=== PATIENT | female | born 1950 | race African-American/Black ===

== ENCOUNTER 2018-06-28 20:14 | Inpatient (IN) | payer MEDICARE ==
[2018-06-28 21:03] LABS: Lactate 1.22 mmol/L (0.50-2.20)
[2018-06-28 21:07] LABS: #Lymphocytes 0.8 thou/uL (1.20-3.40); #Monocytes 0.6 thou/uL (0.11-0.59); #Neutrophils 7.1 thou/uL (1.40-6.50); %Basophils 0.5 % (0.0-1.0); %Eosinophils 0.1 % (0.0-10.0); %Lymphocytes 9.7 % (21.0-51.0); %Monocytes 7.2 % (0.0-10.0); %Neutrophils 82.4 % (42.0-75.0); Hemoglobin 10.8 g/dL (12.0-16.0); Mean Corpuscular HGB CONC 30.9 g/dL (32.0-36.0); Mean Corpuscular Hemoglobin 25.9 pg (27.0-31.0); Mean Corpuscular Volume 83.9 fL (78.0-98.0); Mean Platelet Volume 9.5 fL (7.4-10.4); Platelet Count 168 thou/uL (130-400); RBC Distribution Width 16.3 % (11.5-14.5); Red Blood Cell (RBC) Count 4.17 mill/uL (4.20-5.40); White Blood Cell (WBC) Count 8.6 thou/uL (4.8-10.8)
--- NOTE | 2018-06-28 21:08 | RAD ---
PORTABLE CHEST: 06/28/18 PROVIDED CLINICAL HISTORY: Altered mental status. FINDINGS: No comparisons. There is marked enlargement of the cardiac silhouette. Vascular stent material is see n. Left subclavian cardiac pacing device is noted with lead tips overlying expected locations of RA a nd RV. No definite focal consolidation, pleural fluid or pneumothorax apparent. IMPRESSION: Cardiomegaly without evidence for an acute cardiopulmonary process. POS: [facility]
[2018-06-28 21:31] LABS: ALT (SGPT) 8 U/L (8-55); AST (SGOT) 13 U/L (5-34); Albumin 3.2 g/dL (3.4-4.8); Alkaline Phosphatase 68 U/L (40-150); Anion Gap 14 mmol/L (10-20); BUN (Urea Nitrogen) 25 mg/dL (9.8-20.1); Bilirubin, Total 1.8 mg/dL (0.2-1.2); Calc. Creatinine Clearance 0 mL/min (70-130); Calcium 9.2 mg/dL (7.8-10.44); Carbon Dioxide 32 mmol/L (23-31); Chloride 93 mmol/L (98-107); Estimated GFR-MDRD 9; Globulin 4.6 g/dL (2.4-3.5); Glucose 125 mg/dL (80-115); Potassium 3.6 mmol/L (3.5-5.1); Protein, Total 7.8 g/dL (6.0-8.3); Sodium 135 mmol/L (136-145)
--- NOTE | 2018-06-28 21:39 | CT ---
CT BRAIN 06/28/18 PROVIDED CLINICAL HISTORY: Fall. FINDINGS: No comparisons. The ventricular system appears normal in size and morphology. There is no evidence fo r intracranial hemorrhage or mass effect. Encephalomalacia involves a portion of the right cerebellar hemisphere on the basis of prior insult. There is no evidence for intracranial hemorrhage or mass ef fect. The extracranial soft tissues and osseous structures demonstrate no acute abnormality. IMPRESSION: No evidence for intracranial hemorrhage or mass effect. POS: [facility]
[2018-06-28] MEDS ORDERED: Acetaminophen 325 MG TAB ONE (21:41)
[2018-06-28] MEDS ORDERED: Piperacillin/Tazobactam 4.5 GM VIAL ONE (21:50)
[2018-06-28 21:52] LABS: CKMB 0.8 ng/mL (0-6.6)
[2018-06-29 00:43] LABS: Troponin I 0.081 ng/mL (< 0.028)
[2018-06-29] MEDS ORDERED: Acetaminophen 325 MG TAB PO PRN (00:43)
[2018-06-29] MEDS ORDERED: Dextrose 50% Abboject 50 ML SYRINGE SLOW IVP PRN (00:53)
[2018-06-29] MEDS ORDERED: Dextrose 5% in Water 1,000 ML IV PRN (00:53)
[2018-06-29] MEDS ORDERED: Vancomycin HCl 1 GM in Premix Bag 1 BAG IVPB PRN (01:13)
[2018-06-29] MEDS ORDERED: Vancomycin HCl 750 MG in Sodium Chloride 0.9% 250 ML 250 ML IVPB PRN ×2 (01:13→10:44)
[2018-06-29] MEDS ORDERED: Vancomycin HCl 1.25 GM in Sodium Chloride 0.9% 250 ML 250 ML IVPB PRN (01:13)
[2018-06-29] MEDS ORDERED: Vancomycin HCl 500 MG in Sodium Chloride 0.9% 100 ML IVPB PRN (01:14)
[2018-06-29] MEDS ORDERED: HOLD VANCOMYCIN FOR LEVEL >20 FS PRN (01:14)
[2018-06-29] MEDS ORDERED: Lidocaine 1% PF 5 ML VIAL ONE (01:28)
[2018-06-29 02:10] LABS: Mean Corpuscular HGB CONC 31.3 g/dL (32.0-36.0); Mean Corpuscular Hemoglobin 26.3 pg (27.0-31.0); RBC Distribution Width 16.2 % (11.5-14.5); White Blood Cell (WBC) Count 7.4 thou/uL (4.8-10.8)
[2018-06-29 02:11] LABS: #Basophils 0.1 thou/uL (0.0-0.2); #Lymphocytes 0.9 thou/uL (1.20-3.40); #Monocytes 0.5 thou/uL (0.11-0.59); #Neutrophils 5.9 thou/uL (1.40-6.50); %Basophils 0.7 % (0.0-1.0); %Eosinophils 0.1 % (0.0-10.0); %Lymphocytes 11.5 % (21.0-51.0); %Monocytes 7.2 % (0.0-10.0); %Neutrophils 80.5 % (42.0-75.0); Mean Platelet Volume 9.8 fL (7.4-10.4); Platelet Count 154 thou/uL (130-400)
[2018-06-29] MEDS: Sodium Chloride 0.9% 1,000 ML IV SCH ×2 (02:19→06:12)
[2018-06-29 02:21] LABS: Anion Gap 16 mmol/L (10-20); BUN (Urea Nitrogen) 24 mg/dL (9.8-20.1); Calc. Creatinine Clearance 0 mL/min (70-130); Calcium 8.5 mg/dL (7.8-10.44); Carbon Dioxide 24 mmol/L (23-31); Chloride 96 mmol/L (98-107); Estimated GFR-MDRD 9; Glucose 137 mg/dL (80-115); Potassium 3.4 mmol/L (3.5-5.1); Sodium 133 mmol/L (136-145)
[2018-06-29 02:25] LABS: INR-International Normal Ratio 1.9; PTT 41.1 SEC (22.9-36.1); Prothrombin Time 21.4 SEC (12.0-14.7); Troponin I 0.069 ng/mL (< 0.028)
[2018-06-29] MEDS ORDERED: Sodium Chloride 0.9% 500 ML IVPB SCH ×2 (04:15→06:00)
[2018-06-29 05:18] VITALS: BMI 28.5
[2018-06-29] MEDS: Famotidine 20 MG TAB PO SCH (08:03)
[2018-06-29] MEDS: Piperacillin/Tazobactam 2.25 GM in Sodium Chloride 0.9% 100 ML IVPB SCH ×2 (08:04→20:06)
--- NOTE | 2018-06-29 08:30 | RAD ---
PORTABLE UPRIGHT FRONTAL CHEST RADIOGRAPH: 06/29/2018 HISTORY: Central line placement. COMPARISON: 06/28/2018 FINDINGS: Vascular stent material overlies the right lung apex, in the right axillary region. Right-sided vasc ular catheter present, distal tip overlying the region of the cavoatrial junction. Stent material ov erlies the right hilum, stable. Stable dual-lead AICD inserted via a left subclavian approach. Stab le prominence of the cardiac silhouette with no lobar consolidation or alveolar edema. IMPRESSION: Right-sided vascular catheter, as above. POS: [facility]
--- NOTE | 2018-06-29 08:33 | RAD ---
SUPINE PORTABLE KUB: 06/29/2018 HISTORY: Distention. COMPARISON: None. FINDINGS: There is a paucity of bowel gas in the pelvis, which may be secondary to a distended urinary bladder. Supine imaging limits assessment for free intraperitoneal air and small bowel obstruction. The bow el gas is centralized, which may signify ascites. IMPRESSION: Findings which may signify ascites. Limited assessment for bowel obstruction is grossly unremarkable . POS: [facility]
[2018-06-29] MEDS ORDERED: Vancomycin Sliding Scale 1 EACH FS SCH (09:00)
[2018-06-29] MEDS: HumaLOG 300 UNITS/3 ML VIAL SC PRN ×2 (11:45→17:06)
--- NOTE | 2018-06-29 14:22 | CON ---
DATE OF CONSULTATION: NEPHROLOGY CONSULTATION REASON FOR CONSULTATION: End-stage renal disease, on maintenance hemodialysis. HISTORY OF PRESENT ILLNESS: This is a very pleasant 68-year-old female, who presented to the hospital with altered mental status. The patient denies any nausea, vomiting, or chest pain. The patient has diabetes mellitus, and is on dialysis, schedule is unavailable. PAST MEDICAL HISTORY: Significant for diabetes mellitus, hypertension, anemia, secondary hyperparathyroidism and hypothyroidism. SOCIAL HISTORY: Noncontributory. FAMILY HISTORY: Negative for ESRD. ALLERGIES: REVIEWED. MEDICATIONS: Home medication list reviewed. REVIEW OF SYSTEMS: A 15-point review of systems was performed and was negative except for positives noted above. NECK: No swelling or lumps. NOSE: No epistaxis or discharge. EYES: No diplopia or pain. MUSCULOSKELETAL: No joint pain. NEUROPSYCHIATRIC SYSTEMS: No suicidal ideation. No ideation. SKIN: Denies any rash or ulcer. CONSTITUTIONAL: No fever or chills. OBJECTIVE: GENERAL: The patient is awake, alert, in no acute distress. VITAL SIGNS: Afebrile, pulse 90, breathing 16, and blood pressure 91/50. GENERAL APPEARANCE AND MENTAL STATUS: Fair. HEAD/NECK: Normocephalic. Atraumatic. EYES: EOMI. No deformity. EARS: Clear. No ulcers. NOSE: Intact. No lesions. MOUTH: Clear. No discharge. THROAT: Clear. No exudate. LUNGS: Clear. No crackles. CARDIAC: S1, S2. No rub. ABDOMEN: Benign. Bowel sounds positive. GENITALIA/RECTUM: Ortiz absent. BACK/EXTREMITIES: Edema 0+. NEUROLOGICAL: Alert and motor intact. LABORATORY DATA: Labs show hemoglobin of 10 and potassium 3.4. ASSESSMENT AND PLAN: 1. Stage 3 chronic kidney disease, no urgent indication for dialysis. 2. Hypotension, stable. 3. Anemia, stable. 4. Medications based on glomerular filtration rate are appropriate. 5. We will plan for dialysis tomorrow. Job ID: [id number]
--- NOTE | 2018-06-29 14:23 | CON ---
DATE OF CONSULTATION: 06/29/2018 SERVICE: Pulmonary Medicine. REASON FOR CONSULTATION: ICU patient. HISTORY OF PRESENT ILLNESS: The patient is a 68-year-old female with past medical history significant for end-stage renal disease. She presented to the hospital because of altered mentation/confusion. She was also having a fever. She does not know any of the elements that brought her to the hospital. Overnight, she was given some broad-spectrum antibiotics, liter of fluid. She never needed any pressors, though a central line was placed. Her mentation improved dramatically, her blood pressures firmed up, and she did not have any more fevers overnight. She currently denies any nausea, vomiting, or diarrhea. She is not coughing or bringing up any sputum. She denies hot, red, swollen joints, or rashes. She is tolerating dialysis just fine and she goes through fistula. She does not have any artificial devices in her. PAST MEDICAL HISTORY: 1. End-stage renal disease. 2. Type 2 diabetes mellitus. 3. Hypertension. 4. Hypothyroidism. 5. Dyslipidemia. 6. Coronary artery disease. 7. Peripheral vascular disease. PAST SURGICAL HISTORY: 1. AICD placement in the left subclavian. 2. Fistula creation in the right upper extremity. SOCIAL HISTORY: Negative for alcohol, tobacco, or illicit drug use. She has no exposure to chemicals, dust, asbestos, or tuberculosis. FAMILY HISTORY: Noncontributory. ALLERGIES: CODEINE. MEDICATIONS: List of her inpatient and outpatient medications was reviewed. At this point, no specific updates were made. REVIEW OF SYSTEMS: General, head, ears, eyes, nose, throat, cardiovascular, respiratory, GI, , musculoskeletal, neurologic, and skin are negative except as mentioned in the HPI. PHYSICAL EXAMINATION: VITAL SIGNS: Afebrile, pulse 96, blood pressure 119/70, respirations 17, and saturation 92% on 3 L nasal cannula. GENERAL: The patient is awake and alert, in no apparent distress. LUNGS: Dependent crackles are minimal. There is absolutely no prolonged expiratory phase. I do not appreciate rhonchi or wheezing. HEART: Normal rate. Regular. No significant murmurs are identified. ABDOMEN: Soft. Minimally distended. It is nontender to palpation. Bowel sounds are present. She has tympany with percussion. No rebound or guarding is noted. MUSCULOSKELETAL: No cyanosis or clubbing. There is no appreciable edema of the bilateral lower extremities or hips. : No Ortiz. NEUROLOGIC: Grossly nonfocal. Her strength is symmetric in the bilateral upper and lower extremities. Sensation was not tested. Cranial nerves are intact. Rapidly alternating movements in upper and lower extremities are normal. LABORATORY DATA: WBC 7.4, hemoglobin 10.0, platelets 154. Neutrophil count is 81%. INR 1.9. Troponin is downtrending to 0.069. Calcium 8.5. Lactate 1.2. Potassium 3.4. Creatinine 5.46. Otherwise, basic metabolic profile is unremarkable. Liver function studies are unremarkable except for a bilirubin of 1.8. AST and ALT as well as alkaline phosphatase are all normal. TSH falls within the normal limits. Hemoglobin A1c 9.3. Influenza A and B are negative, blood cultures x2 are unremarkable. IMAGING DATA: CT of the brain demonstrates no acute intracranial abnormality. Chest x-ray demonstrates multiple stents throughout the peripheral arterial structures on the right. There is a left subclavian central venous catheter in good position. Dual lead AICD is in place. Low lung volumes accentuate interstitial marking on the right. The right hemidiaphragm is significantly elevated. Cardiomegaly and left atrial enlargement are suggested. Abdominal x-ray demonstrates nonspecific bowel gas pattern. ASSESSMENT: 1. Metabolic encephalopathy, resolved. 2. Severe sepsis. 3. End-stage renal disease. 4. Peripheral vascular disease. 5. Possible ascites. DISCUSSION AND PLAN: I will do an ultrasound of the abdomen. If there is significant fluid collection there, diagnostic paracentesis would be indicated. At this point, she is stable for transition out of the ICU to the medical unit. Pulmonary/Critical Care will continue to follow along for the time being. Agree with empiric antibiotics, which will be de-escalated in 24 to 48 hours if we do not identify anything on our culture results. Job ID: [id number]
[2018-06-29] MEDS: Midodrine HCl 5 MG TAB PO SCH ×2 (14:42→20:01)
--- NOTE | 2018-06-29 15:06 | HP ---
CHIEF COMPLAINT: Found down and altered mental status. HISTORY OF PRESENT ILLNESS: This patient is a 68-year-old female, who has a history of end-stage renal disease, on dialysis. The patient was apparently doing fine in her usual state of health in her wheelchair. The patient's daughter reports that she left for about 30 minutes, and when she returned, she found her mother on the ground. She believes she simply was trying to sit in her wheelchair and missed the seat and was on the ground. However, she was acting differently and so she subsequently brought her to the emergency department. The patient's daughter reports that her mother is typically fairly sharp and oriented, but was not so when she found her. The patient is not able to give significant amount a history and does not remember the events. She says she is feeling fine. Denies any pain or any other symptoms at this time. She denies any urinary symptoms. According to the patient 's daughter, the patient does not make urine. REVIEW OF SYSTEMS: Essentially unobtainable due to the patient's mental status. PAST MEDICAL HISTORY: Notable for diabetes and hypertension and end-stage renal disease, on dialysis. 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 She also has a defibrillator in place, the patient cannot say why, the patient's daughter does not know why, and she does not know the name of her welding machine setter. PAST SURGICAL HISTORY: No known surgery per the patient's daughter. The patient 's daughter does report that her mother gets her stomach "drained about once a year ," and cannot offer more details than that. FAMILY HISTORY: Notable for hypertension throughout multiple family members. SOCIAL HISTORY: The patient is a nonsmoker, nondrinker, and nondrug user. She is a full code per the patient and her daughter, and her daughter would be her surrogate decision maker at this time. ALLERGIES: CODEINE. MEDICATIONS: 1. Amiodarone 200 mg p.o. daily. 2. Atorvastatin 10 mg at bedtime. 3. Carvedilol 3.125 mg b.i.d. 4. Dextromethorphan p.r.n. 5. Dialyvite 800-Ultra D 0.8-2000 units daily. 6. Fluticasone 50 mcg nasal spray daily. 7. Hydroxyzine 25 mg p.r.n. itching. 8. Lantus 12 units subcu q.a.m. 9. Humalog. 10. Levothyroxine 88 mcg daily. 11. Midodrine. 12. Sensipar 30 mg p.o. daily. 13. Sevelamer 800 mg two p.o. t.i.d. with meals. 14. Warfarin 2.5 mg p.o. daily. PHYSICAL EXAMINATION: VITAL SIGNS: Initial vital signs notable for temperature of 101.3, pulse 83, respirations 18, BP 120/75, and 94% on room air. GENERAL APPEARANCE: Age-appropriate female. She is awake and alert. She is conversant, but she appears to be slightly confused. She is oriented to person, place, and year presently, but she is unable to give much history about what happened today or her medical history. HEENT: She has no evidence of trauma to her head or face. Pupils were equal and reactive. She has no OP lesions. NECK: Supple and symmetric without lymphadenopathy, JVD, or carotid bruits. HEART: Regular rate and rhythm without murmurs, gallops, or rubs. LUNGS: Clear bilaterally. ABDOMEN: Appears to be somewhat distended. She does have a superior umbilical hernia which is distended, but does reduce fairly easily. It is nontender. Bowel sounds are present. EXTREMITIES: No significant edema. She has a dialysis port on the left. She has a defibrillator subcutaneously on the left. IMAGING STUDIES: EKG shows normal sinus rhythm without significant ischemic changes. Chest x-ray shows right-sided vascular implant and a left-sided defibrillator. ER COURSE: The patient was noted to be febrile in the emergency department. Her blood pressure dropped into the 80s systolic. She was subsequently treated empirically with vancomycin and Zosyn for possible sepsis. She did receive 1500 mL of IV fluids; however, given the fact that she does not make urine and is a dialysis patient, fluids were given more judiciously than typical in case of potential sepsis. IMPRESSION AND PLAN: 1. Apparent fall. The patient does not appear to have suffered any significant injury. She did not have a witnessed fall. It is really not clear what happened. She was simply found on the floor beside her wheelchair. Continue to monitor for any signs of injury. 2. Sepsis. The patient is a dialysis patient. She does not have a high white blood cell count, but she is somewhat hypotensive, and she appears to have metabolic encephalopathy, and she is febrile. We will continue with broad-spectrum antibiotics. At present, there is no specific sign of infection to specifically treat, so we will follow up on blood cultures. 3. Altered mental status, appears to be metabolic encephalopathy likely related to infection. We will need to continue to monitor closely. It does not appear that she is uremic. 4. End-stage renal disease, on dialysis. We will consult Nephrology. It is not clear who the patient's marine fireman is at this time. 5. Diabetes mellitus. We will give some sliding scale coverage for now. 6. Cardiac. The patient has a defibrillator. She is on amiodarone and she is on warfarin. She does not know why she is on any of those medications, likely due to her encephalopathy. We will need to try to track down some better information regarding her cardiac status, although that appears to be generally well compensated at the moment. 7. Hypertension. Continue with her usual home medications. 8. Some evidence of abdominal distention, we will obtain a KUB. Job ID: [id number] MTDD
[2018-06-30 04:56] LABS: #Eosinphils 0.1 thou/uL (0.0-0.7); #Monocytes 0.5 thou/uL (0.11-0.59); #Neutrophils 3.2 thou/uL (1.40-6.50); %Basophils 0.9 % (0.0-1.0); %Eosinophils 1.4 % (0.0-10.0); %Lymphocytes 21.2 % (21.0-51.0); %Neutrophils 65.5 % (42.0-75.0); Hemoglobin 10.1 g/dL (12.0-16.0); Mean Corpuscular HGB CONC 31.3 g/dL (32.0-36.0); Mean Corpuscular Hemoglobin 26.7 pg (27.0-31.0); Mean Corpuscular Volume 85.2 fL (78.0-98.0); Mean Platelet Volume 9.3 fL (7.4-10.4); Platelet Count 162 thou/uL (130-400); RBC Distribution Width 16.6 % (11.5-14.5); Red Blood Cell (RBC) Count 3.77 mill/uL (4.20-5.40); White Blood Cell (WBC) Count 4.9 thou/uL (4.8-10.8)
[2018-06-30 05:10] LABS: Anion Gap 16 mmol/L (10-20); BUN (Urea Nitrogen) 30 mg/dL (9.8-20.1); Calc. Creatinine Clearance 10 mL/min (70-130); Carbon Dioxide 26 mmol/L (23-31); Chloride 99 mmol/L (98-107); Estimated GFR-MDRD 8; Glucose 122 mg/dL (80-115); Potassium 3.7 mmol/L (3.5-5.1); Sodium 137 mmol/L (136-145)
--- NOTE | 2018-06-30 05:39 | PDOC.EVN ---
Event Note - Event Note Event Note: pt seen and examined, she is more awake and tells me that for the past 2-3 days she has not been eating nor drinking much. She tried to reach for something and fell off the wheelchair. She is more oriented and he bp is low normal. will continue abx for now.
--- NOTE | 2018-06-30 07:55 | ULT ---
ULTRASOUND ABDOMEN: Date: 06/28/18 HISTORY: Elevated bilirubin, ascites. FINDINGS: The liver demonstrates homogeneous echotexture without focal mass or intrahepatic ductal dilatation. There is a moderate amount of free fluid in the abdomen consistent with ascites. The spleen is normal , measuring 11.4 cm in length. The gallbladder is full of shadowing calculi, without gallbladder wall thickening or pericholecystic fluid. The common duct measures 5.0 mm in diameter. The visualized por tions of the pancreas, aorta, and IVC are unremarkable. There is a 1.5 cm cyst in the left kidney. No hydronephrosis is seen on either side. The kidneys are bilaterally atrophic, measuring 6.4 cm in franca gth on the right and 7.1 cm on the left. IMPRESSION: 1. Moderate ascites. 2. Cholelithiasis. 3. Left renal cyst. 4. Atrophic kidneys. POS: [facility]
[2018-06-30] MEDS: Famotidine 20 MG TAB PO SCH (09:12)
[2018-06-30] MEDS: Midodrine HCl 5 MG TAB PO SCH ×3 (09:24→20:08)
[2018-06-30] MEDS ORDERED: Vancomycin HCl 1 GM in Premix Bag 1 BAG IVPB SCH (12:00)
[2018-06-30 13:55] LABS: Vancomycin, Trough 7.6 ug/mL
[2018-06-30] MEDS: Piperacillin/Tazobactam 2.25 GM in Sodium Chloride 0.9% 100 ML IVPB SCH ×2 (15:05→20:13)
--- NOTE | 2018-06-30 17:40 | PDOC.PN ---
- Subjective Encounter Start Date: 06/30/18 Encounter Start Time: 10:30 Subjective: pt up in dialysis no complains - Objective Resuscitation Status - Order Detail: 06/29/18 00:43 Resuscitation Status Routine Resuscitation Status: FULL: Full Resuscitation Discussed with: Patient and Daughter Vital Signs & Weight: Vital Signs (12 hours) Temp Pulse Resp BP Pulse Ox 06/30/18 16:40 97.5 F L 76 16 105/70 94 L 06/30/18 08:00 94 L 06/30/18 07:50 97.4 F L 71 16 99/66 94 L Weight Weight 176 lb 12.972 oz Most Recent Monitor Data Heart Rate from ECG 70 NIBP 112/70 NIBP BP-Mean 84 Respiration from ECG 19 SpO2 97 I&O: 06/29/18 06/30/18 07/01/18 06:59 06:59 06:59 Intake Total 1110 1333 180 Output Total 0 Balance 1110 1333 180 Result Diagrams: 06/30/18 04:45 06/30/18 04:45 Additional Labs: Accuchecks 06/30/18 06/30/18 06/29/18 16:42 04:31 20:06 POC Glucose 91 120 H 187 H 06/29/18 17:03 POC Glucose 172 H Phys Exam - Physical Examination Respiratory: no wheezing, no rales, no rhonchi, wheezing present, clear to auscultation bilateral Cardiovascular: RRR, no significant murmur, no rub, gallop, irregular Gastrointestinal: soft, non-tender, no distention, positive bowel sounds Musculoskeletal: no edema, pulses present, edema present Dx/Plan (1) Sepsis Code(s): A41.9 - SEPSIS, UNSPECIFIED ORGANISM Status: Acute (2) Sepsis associated hypotension Code(s): A41.9 - SEPSIS, UNSPECIFIED ORGANISM; I95.9 - HYPOTENSION, UNSPECIFIED Status: Acute (3) ESRD (end stage renal disease) Code(s): N18.6 - END STAGE RENAL DISEASE Status: Acute - Plan no source for her hypotension, not sure if low bp due to autonomic -: pt on midodrine, ruq ultrasound indicated some ascites -: will get diagnostic parcentesis -: continue abx for now * . Review of Systems - Review of Systems Respiratory: negative: Cough, Dry, Shortness of Breath, Hemoptysis, SOB with Excertion, Pleuritic Pain, Sputum, Wheezing Cardiovascular: negative: chest pain, palpitations, orthopnea, paroxysmal nocturnal dyspnea, edema, light headedness, other Gastrointestinal: negative: Nausea, Vomiting, Abdominal Pain, Diarrhea, Constipation, Melena, Hematochezia, Other - Medications/Allergies Allergies/Adverse Reactions: Allergies Allergy/AdvReac Type Severity Reaction Status Date / Time codeine Allergy Verified 06/29/18 00:58 Medications: Current Medications Acetaminophen (Tylenol) 650 mg PO Q4H PRN PRN Reason: Headache/Fever/Mild Pain (1-3) Dextrose/Water (Dextrose 50%) 25 gm SLOW IVP PRN PRN PRN Reason: Hypoglycemia Famotidine (Pepcid) 20 mg PO DAILY [facility] Last Admin: 06/30/18 09:12 Dose: Not Given Glucagon (Glucagon) 1 mg IM PRN PRN PRN Reason: Hypoglycemia Piperacillin Sod/Tazobactam (Sod 2.25 gm/ Sodium Chloride) 100 mls @ 200 mls/ hr IVPB Q12HR [facility] Last Admin: 06/30/18 15:05 Dose: Not Given Dextrose/Water (D5w) 1,000 mls @ 0 mls/hr IV .Q0M PRN PRN Reason: Hypoglycemia Vancomycin HCl 1.25 gm/ Sodium (Chloride) 250 mls @ 166.667 mls/hr IVPB WILLCALL PRN PRN Reason: IF VANC LEVEL <= 5.0 Vancomycin HCl 1 gm/ Device 200 mls @ 200 mls/hr IVPB WILLCALL PRN PRN Reason: IF VANC LEVEL >5 AND <=10 Vancomycin HCl 750 mg/ Sodium (Chloride) 250 mls @ 250 mls/hr IVPB WILLCALL PRN PRN Reason: IF VANC LEVEL >10 AND <= 15 Vancomycin HCl 500 mg/ Sodium (Chloride) 100 mls @ 100 mls/hr IVPB WILLCALL PRN PRN Reason: IF VANC LEVEL >15 AND <=20 Vancomycin HCl 750 mg/ Sodium (Chloride) 250 mls @ 250 mls/hr IVPB WILLCALL PRN PRN Reason: IF VANC LEVEL >10 AND <= 15 Insulin Human Lispro (Humalog) 0 units SC .MILD SLIDING SCALE PRN PRN Reason: Mild Correctional Scale Last Admin: 12/19/18 17:06 Dose: 2 unit Midodrine (Proamatine) 5 mg PO TID [facility] Last Admin: 06/30/18 16:29 Dose: 5 mg Miscellaneous Medication (Vancomycin Sliding Scale) 0 each FS .WITH DIALYSIS [facility] Miscellaneous Medication (Pharmacy To Dose) 0 each IVPB PRN PRN PRN Reason: VANC Pharmacy to Dose Hold Vancomycin For (Level >20) 0 each FS .AT DIALYSIS PRN PRN Reason: HOLD VANCOMYCIN IF LEVEL >20 Sodium Chloride (Flush - Normal Saline) 10 ml IVF Q12HR [facility] Last Admin: 06/30/18 09:26 Dose: 10 ml Sodium Chloride (Flush - Normal Saline) 10 ml IVF PRN PRN PRN Reason: Saline Flush
--- NOTE | 2018-06-30 19:17 | PRG ---
DATE OF SERVICE: 06/30/2018 SUBJECTIVE: A 68-year-old female, being seen for end-stage renal disease. The patient denies any nausea, vomiting, or chest pain. OBJECTIVE: CONSTITUTIONAL: The patient is awake and alert. VITAL SIGNS: Afebrile, pulse 76, breathing 16, blood pressure 105/70. GENERAL APPEARANCE AND MENTAL STATUS: Fair. HEAD/NECK: Normocephalic, atraumatic. EYES: EOMI. No deformity. EARS: Clear. No ulcers. NOSE: Intact. No lesions. MOUTH: Clear. No discharge. THROAT: Clear. No exudate. LUNGS: Clear. No crackles. CARDIAC: S1, S2. No rub. ABDOMEN: Benign. Bowel sounds positive. GENITALIA/RECTUM: Ortiz absent. BACK/EXTREMITIES: Edema 0+. NEUROLOGICAL: Alert and motor intact. LABORATORY DATA: Labs show hemoglobin 10.1. ASSESSMENT AND PLAN: 1. Stage 3 chronic kidney disease, stable. 2. Hypertension, stable. 3. Anemia, stable. 4. Medications based on glomerular filtration rate are appropriate. Job ID: [id number]
[2018-07-01 06:08] LABS: INR-International Normal Ratio 1.5; Prothrombin Time 18.6 SEC (12.0-14.7)
[2018-07-01 06:09] LABS: PTT 40.8 SEC (22.9-36.1)
[2018-07-01] MEDS: Midodrine HCl 5 MG TAB PO SCH ×3 (08:14→20:52)
[2018-07-01] MEDS: Famotidine 20 MG TAB PO SCH (08:14)
[2018-07-01] MEDS: Piperacillin/Tazobactam 2.25 GM in Sodium Chloride 0.9% 100 ML IVPB SCH ×2 (08:15→20:55)
[2018-07-01 10:05] LABS: Vancomycin, Random 22.9 ug/mL (See Comment)
[2018-07-01 15:11] LABS: BF Color Yellow; BF RBC Count - Manual 210 /cumm; BF WBC/Nonhematics Ct. - Manua 69 /cumm; Body Fluid Source Ascites Body Fluid; Clarity Hazy (Clear); Tube # EDTA
[2018-07-01] MEDS ORDERED: Albumin 25% 25 GM/100 ML BOT IVPB SCH (15:31)
--- NOTE | 2018-07-01 15:48 | ULT ---
ULTRASOUND GUIDED PARACENTESIS: HISTORY: Sepsis of unknown source. Ascites. COMPARISON: None. FINDINGS: Successful ultrasound-guided paracentesis. A total of 1500 mL of yellow-colored ascites was aspirate d. The patient tolerated the procedure well. No immediate post procedure complications. TECHNIQUE: Consent obtained to perform an ultrasound-guided paracentesis. The patient's left lower quadrant was deemed appropriate. The skin was prepped and draped in a sterile fashion, and 1% Lidocaine, buffere d with sodium bicarbonate was used for local anesthesia. Under ultrasound guidance, a 5 [place] Yueh catheter was advanced into the peritoneal space, and 1500 mL of yellow-colored ascites was aspirated. The patient tolerated the procedure well. No immediate or post procedure complications. IMPRESSION: Successful ultrasound-guided paracentesis. POS: [facility]
[2018-07-01 15:57] LABS: BF Segmented Neutrophils 1 %; Cell Count Non Hematic 77 %; Lymphocytes 22 %
[2018-07-01 17:44] LABS: Fluid, Protein 3.3 g/dL (Not Available)
--- NOTE | 2018-07-01 17:58 | PRG ---
DATE OF SERVICE: 07/01/2018 SUBJECTIVE: A 68-year-old lady being seen for end-stage renal disease. The patient denies any nausea, vomiting, or chest pain. OBJECTIVE: GENERAL: The patient is awake, alert, in no acute distress. VITAL SIGNS: Afebrile. Pulse 78, breathing 16, and blood pressure 101/66. GENERAL APPEARANCE AND MENTAL STATUS: Fair. HEAD/NECK: Normocephalic. Atraumatic. EYES: EOMI. No deformity. EARS: Clear. No ulcers. NOSE: Intact. No lesions. MOUTH: Clear. No discharge. THROAT: Clear. No exudate. LUNGS: Clear. No crackles. CARDIAC: S1, S2. No rub. ABDOMEN: Benign. Bowel sounds positive. GENITALIA/RECTUM: Ortiz absent. BACK/EXTREMITIES: Edema 0+. NEUROLOGICAL: Alert and motor intact. LABORATORY DATA: Labs show hemoglobin . ASSESSMENT AND PLAN: 1. Stage chronic kidney disease, plan dialysis. 2. Hypertension, stable. 3. Anemia, stable. 4. Medications based on glomerular filtration rate are appropriate. Job ID: [id number]
--- NOTE | 2018-07-01 19:55 | PDOC.PN ---
- Subjective Encounter Start Date: 07/01/18 Encounter Start Time: 09:00 Subjective: pt up in bed no complains - Objective Resuscitation Status - Order Detail: 06/29/18 00:43 Resuscitation Status Routine Resuscitation Status: FULL: Full Resuscitation Discussed with: Patient and Daughter Vital Signs & Weight: Vital Signs (12 hours) Temp Pulse Resp BP Pulse Ox 07/01/18 16:06 97.4 F L 78 16 90/62 94 L 07/01/18 14:40 97.3 F L 76 16 101/66 95 07/01/18 08:00 92 L Weight Weight 176 lb 12.972 oz Most Recent Monitor Data Heart Rate from ECG 70 NIBP 112/70 NIBP BP-Mean 84 Respiration from ECG 19 SpO2 97 I&O: 06/30/18 07/01/18 07/02/18 06:59 06:59 06:59 Intake Total 1333 600 480 Output Total 0 Balance 1333 600 480 Result Diagrams: 06/30/18 04:45 06/30/18 04:45 Additional Labs: Accuchecks 07/01/18 07/01/18 06/30/18 16:10 04:45 19:50 POC Glucose 121 H 146 H 161 H Phys Exam - Physical Examination Neck: no nodes, no JVD, supple, full ROM Respiratory: no wheezing, no rales, no rhonchi, wheezing present, clear to auscultation bilateral Cardiovascular: RRR, no significant murmur, no rub, gallop, irregular Gastrointestinal: soft, non-tender, no distention, positive bowel sounds Dx/Plan (1) Sepsis Code(s): A41.9 - SEPSIS, UNSPECIFIED ORGANISM Status: Acute (2) Sepsis associated hypotension Code(s): A41.9 - SEPSIS, UNSPECIFIED ORGANISM; I95.9 - HYPOTENSION, UNSPECIFIED Status: Acute (3) ESRD (end stage renal disease) Code(s): N18.6 - END STAGE RENAL DISEASE Status: Acute - Plan pt going for paracentesis, pt at baseline per family -: will discontinue vanco and keep on zosyn for now -: nurse to obtain home meds. -: if paracentesis negative will discontinue abx vs prophylactic -: no source of infection for now. continue midodrine * . Review of Systems - Review of Systems Respiratory: negative: Cough, Dry, Shortness of Breath, Hemoptysis, SOB with Excertion, Pleuritic Pain, Sputum, Wheezing Cardiovascular: negative: chest pain, palpitations, orthopnea, paroxysmal nocturnal dyspnea, edema, light headedness, other Gastrointestinal: negative: Nausea, Vomiting, Abdominal Pain, Diarrhea, Constipation, Melena, Hematochezia, Other - Medications/Allergies Allergies/Adverse Reactions: Allergies Allergy/AdvReac Type Severity Reaction Status Date / Time codeine Allergy Verified 06/29/18 00:58 Medications: Current Medications Acetaminophen (Tylenol) 650 mg PO Q4H PRN PRN Reason: Headache/Fever/Mild Pain (1-3) Albumin Human (Albumin 25%) 25 gm IVPB NOW [facility] Stop: 07/01/18 20:00 Last Admin: 07/01/18 16:21 Dose: 25 gm Amiodarone HCl (Cordarone) 200 mg PO DAILY [facility] Atorvastatin Calcium (Lipitor) 10 mg PO DAILY [facility] Cinacalcet (Sensipar) 30 mg PO DAILY [facility] Dextrose/Water (Dextrose 50%) 25 gm SLOW IVP PRN PRN PRN Reason: Hypoglycemia Famotidine (Pepcid) 20 mg PO DAILY [facility] Last Admin: 07/01/18 08:14 Dose: Not Given Glucagon (Glucagon) 1 mg IM PRN PRN PRN Reason: Hypoglycemia Piperacillin Sod/Tazobactam (Sod 2.25 gm/ Sodium Chloride) 100 mls @ 200 mls/ hr IVPB Q12HR [facility] Last Admin: 07/01/18 08:15 Dose: Not Given Dextrose/Water (D5w) 1,000 mls @ 0 mls/hr IV .Q0M PRN PRN Reason: Hypoglycemia Insulin Human Lispro (Humalog) 0 units SC .MILD SLIDING SCALE PRN PRN Reason: Mild Correctional Scale Last Admin: 06/29/18 17:06 Dose: 2 unit Midodrine (Proamatine) 5 mg PO TID [facility] Last Admin: 07/01/18 15:22 Dose: 5 mg Miscellaneous Medication (Pharmacy To Dose) 0 each IVPB PRN PRN PRN Reason: VANC Pharmacy to Dose Miscellaneous Medication (Pharmacy To Dose) 1 each PO ONE PRN PRN Reason: Pharmacy to dose Hold Vancomycin For (Level >20) 0 each FS .AT DIALYSIS PRN PRN Reason: HOLD VANCOMYCIN IF LEVEL >20 Sevelamer Carbonate (Renvela) 1,600 mg PO TID-[facility] Sodium Chloride (Flush - Normal Saline) 10 ml IVF Q12HR [facility] Last Admin: 07/01/18 08:15 Dose: Not Given Sodium Chloride (Flush - Normal Saline) 10 ml IVF PRN PRN PRN Reason: Saline Flush [facility] Warfarin Sodium (Coumadin) 5 mg PO [facility] Warfarin Sodium (Coumadin) 2.5 mg PO 1999 [facility] Stop: 07/01/18 22:00
[2018-07-01] MEDS ORDERED: Warfarin Sodium 2.5 MG TAB PO SCH (20:00)
[2018-07-01] MEDS: HumaLOG 300 UNITS/3 ML VIAL SC PRN (21:01)
[2018-07-02] MEDS: Sevelamer Carbonate 800 MG TAB PO SCH ×4 (09:06→16:39)
[2018-07-02] MEDS: Famotidine 20 MG TAB PO SCH (09:07)
[2018-07-02] MEDS: Midodrine HCl 5 MG TAB PO SCH ×3 (09:07→20:08)
[2018-07-02] MEDS: Cinacalcet HCl 30 MG TAB PO SCH (09:07)
[2018-07-02] MEDS: Atorvastatin Calcium 10 MG TAB PO SCH (09:07)
[2018-07-02] MEDS: Piperacillin/Tazobactam 2.25 GM in Sodium Chloride 0.9% 100 ML IVPB SCH ×2 (09:08→20:07)
[2018-07-02] MEDS: Amiodarone 200 MG TAB PO SCH (09:10)
--- NOTE | 2018-07-02 13:08 | PDOC.PN ---
- Subjective Encounter Start Date: 07/02/18 Encounter Start Time: 07:40 Subjective: no sob, feels better - Objective Resuscitation Status - Order Detail: 06/29/18 00:43 Resuscitation Status Routine Resuscitation Status: FULL: Full Resuscitation Discussed with: Patient and Daughter FRANCESCA Reviewed: Yes Vital Signs & Weight: Vital Signs (12 hours) Temp Pulse Resp BP Pulse Ox 07/02/18 08:00 97 07/02/18 07:36 97.6 F 71 16 114/72 97 Weight Weight 176 lb 12.972 oz Most Recent Monitor Data Heart Rate from ECG 70 NIBP 112/70 NIBP BP-Mean 84 Respiration from ECG 19 SpO2 97 I&O: 07/01/18 07/02/18 07/03/18 06:59 06:59 06:59 Intake Total 600 940 Balance 600 940 Result Diagrams: 06/30/18 04:45 06/30/18 04:45 Additional Labs: Accuchecks 07/02/18 07/02/18 07/01/18 11:26 05:06 20:00 POC Glucose 159 H 148 H 239 H 07/01/18 16:10 POC Glucose 121 H Phys Exam - Physical Examination HEENT: PERRLA, moist MMs Neck: supple has engorged right neck veins Respiratory: no wheezing, no rales Cardiovascular: RRR, no significant murmur Gastrointestinal: soft, non-tender, positive bowel sounds Musculoskeletal: pulses present, edema present Neurological: non-focal, moves all 4 limbs Dx/Plan (1) Sepsis Code(s): A41.9 - SEPSIS, UNSPECIFIED ORGANISM Status: Acute Qualifiers: Sepsis type: sepsis due to unspecified organism Qualified Code(s): A41.9 - Sepsis, unspecified organism (2) Bacteremia Code(s): R78.81 - BACTEREMIA Status: Acute Comment: gm +ve rods, ? contaminant (3) HTN (hypertension) Code(s): I10 - ESSENTIAL (PRIMARY) HYPERTENSION Status: Chronic Qualifiers: Hypertension type: essential hypertension Qualified Code(s): I10 - Essential (primary) hypertension (4) Afib Code(s): I48.91 - UNSPECIFIED ATRIAL FIBRILLATION Status: Suspected Qualifiers: Atrial fibrillation type: chronic Qualified Code(s): I48.2 - Chronic atrial fibrillation (5) DM type 2 (diabetes mellitus, type 2) Status: Chronic Qualifiers: Diabetes mellitus terminal worker insulin use: with terminal worker use Diabetes mellitus complication status: with kidney complications Diabetes mellitus complication detail: with chronic kidney disease Chronic kidney disease stage : on chronic dialysis Qualified Code(s): E11.22 - Type 2 diabetes mellitus with diabetic chronic kidney disease; N18.6 - End stage renal disease; Z79.4 - senior living (current) use of insulin; Z99.2 - Dependence on renal dialysis (6) Chronic anemia Code(s): D64.9 - ANEMIA, UNSPECIFIED Status: Chronic (7) ESRD (end stage renal disease) Code(s): N18.6 - END STAGE RENAL DISEASE Status: Chronic - Plan repeat blood cs, is on zosyn -: ID consultation, echo -: on midodrine, amiodarone, coumadin, coreg held, lipitor -: had paracentesis with removal of 1.5lts yesterday -: hepatitis panel. PCP is Dr.Catherine Guillermo at [facility] * . Review of Systems - Medications/Allergies Allergies/Adverse Reactions: Allergies Allergy/AdvReac Type Severity Reaction Status Date / Time codeine Allergy Verified 06/29/18 00:58 Medications: Current Medications Acetaminophen (Tylenol) 650 mg PO Q4H PRN PRN Reason: Headache/Fever/Mild Pain (1-3) Amiodarone HCl (Cordarone) 200 mg PO DAILY [facility] Last Admin: 07/02/18 09:10 Dose: 200 mg Atorvastatin Calcium (Lipitor) 10 mg PO DAILY [facility] Last Admin: 07/02/18 09:07 Dose: 10 mg Cinacalcet (Sensipar) 30 mg PO DAILY [facility] Last Admin: 07/02/18 09:07 Dose: 30 mg Dextrose/Water (Dextrose 50%) 25 gm SLOW IVP PRN PRN PRN Reason: Hypoglycemia Famotidine (Pepcid) 20 mg PO DAILY [facility] Last Admin: 07/02/18 09:07 Dose: 20 mg Glucagon (Glucagon) 1 mg IM PRN PRN PRN Reason: Hypoglycemia Piperacillin Sod/Tazobactam (Sod 2.25 gm/ Sodium Chloride) 100 mls @ 200 mls/ hr IVPB Q12HR [facility] Last Admin: 07/02/18 09:08 Dose: 100 mls Dextrose/Water (D5w) 1,000 mls @ 0 mls/hr IV .Q0M PRN PRN Reason: Hypoglycemia Insulin Human Lispro (Humalog) 0 units SC .MILD SLIDING SCALE PRN PRN Reason: Mild Correctional Scale Last Admin: 07/01/18 21:01 Dose: 3 unit Midodrine (Proamatine) 5 mg PO TID [facility] Last Admin: 07/02/18 09:07 Dose: 5 mg Miscellaneous Medication (Pharmacy To Dose) 0 each IVPB PRN PRN PRN Reason: VANC Pharmacy to Dose Miscellaneous Medication (Pharmacy To Dose) 1 each PO PRN PRN PRN Reason: Pharmacy to dose Hold Vancomycin For (Level >20) 0 each FS .AT DIALYSIS PRN PRN Reason: HOLD VANCOMYCIN IF LEVEL >20 Sevelamer Carbonate (Renvela) 1,600 mg PO TID-[facility] Last Admin: 07/02/18 11:54 Dose: 1,600 mg Sodium Chloride (Flush - Normal Saline) 10 ml IVF Q12HR [facility] Last Admin: 07/02/18 09:09 Dose: Not Given Sodium Chloride (Flush - Normal Saline) 10 ml IVF PRN PRN PRN Reason: Saline Flush Last Admin: 07/02/18 09:09 Dose: 10 ml Warfarin Sodium (Coumadin) 5 mg PO 1700 [facility]
--- NOTE | 2018-07-02 14:15 | PRG ---
DATE OF SERVICE: 07/02/2018 SUBJECTIVE: This 68-year-old female, being seen for end-stage renal disease. The patient denies any nausea, vomiting, or chest pain. OBJECTIVE: GENERAL: The patient is awake, alert, in no acute distress. VITAL SIGNS: Temperature afebrile, pulse 71, breathing 16, blood pressure 141/72. GENERAL APPEARANCE AND MENTAL STATUS: Fair. HEAD/NECK: Normocephalic. Atraumatic. EYES: EOMI. No deformity. EARS: Clear. No ulcers. NOSE: Intact. No lesions. MOUTH: Clear. No discharge. THROAT: Clear. No exudate. LUNGS: Clear. No crackles. CARDIAC: S1, S2. No rub. ABDOMEN: Benign. Bowel sounds positive. GENITALIA/RECTUM: Ortiz absent. BACK/EXTREMITIES: Edema 0+. NEUROLOGICAL: Alert and motor intact. LABORATORY DATA: Hemoglobin 10.1. ASSESSMENT AND PLAN: 1. Stage 6 chronic kidney disease, planned dialysis. 2. Hypertension, stable. 3. Anemia, stable. 4. Medications based on glomerular filtration rate are appropriate. Job ID: [id number]
[2018-07-02] MEDS: Warfarin Sodium 5 MG TAB PO SCH (16:36)
[2018-07-02] MEDS ORDERED: Warfarin Sodium 2.5 MG TAB PO SCH (17:00)
[2018-07-02 23:34] LABS: INR-International Normal Ratio 1.4; Prothrombin Time 17.7 SEC (12.0-14.7)
[2018-07-03 06:37] LABS: INR-International Normal Ratio 1.5; Prothrombin Time 18.3 SEC (12.0-14.7)
[2018-07-03] MEDS: Piperacillin/Tazobactam 2.25 GM in Sodium Chloride 0.9% 100 ML IVPB SCH ×2 (07:50→20:42)
[2018-07-03] MEDS: Amiodarone 200 MG TAB PO SCH (07:51)
[2018-07-03] MEDS: Sevelamer Carbonate 800 MG TAB PO SCH ×3 (07:51→16:55)
[2018-07-03] MEDS: Cinacalcet HCl 30 MG TAB PO SCH (07:51)
[2018-07-03] MEDS: Midodrine HCl 5 MG TAB PO SCH ×3 (07:51→20:42)
[2018-07-03] MEDS: Atorvastatin Calcium 10 MG TAB PO SCH (07:51)
[2018-07-03] MEDS: Famotidine 20 MG TAB PO SCH (07:51)
--- NOTE | 2018-07-03 13:03 | PDOC.PN ---
- Subjective Encounter Start Date: 07/03/18 Encounter Start Time: 11:00 Subjective: no sob or fever. No abd pain or nausea -: feels better, wants to go home -: had 2 episode of watery stools yesterday - Objective Resuscitation Status - Order Detail: 06/29/18 00:43 Resuscitation Status Routine Resuscitation Status: FULL: Full Resuscitation Discussed with: Patient and Daughter FRANCESCA Reviewed: Yes Vital Signs & Weight: Vital Signs (12 hours) Temp Pulse Resp BP Pulse Ox 07/03/18 08:52 97.4 F L 72 20 131/73 96 07/03/18 08:00 96 Weight Weight 176 lb 12.972 oz Most Recent Monitor Data Heart Rate from ECG 70 NIBP 112/70 NIBP BP-Mean 84 Respiration from ECG 19 SpO2 97 I&O: 07/02/18 07/03/18 07/04/18 06:59 06:59 06:59 Intake Total 940 480 Balance 940 480 Result Diagrams: 06/30/18 04:45 06/30/18 04:45 Additional Labs: Accuchecks 07/03/18 07/03/18 07/02/18 11:29 04:12 20:09 POC Glucose 172 H 158 H 207 H 07/02/18 16:32 POC Glucose 182 H Phys Exam - Physical Examination HEENT: PERRLA, moist MMs Neck: no JVD, supple Respiratory: no wheezing, no rales Cardiovascular: RRR, no significant murmur Gastrointestinal: soft, non-tender, positive bowel sounds Musculoskeletal: no edema, pulses present Neurological: non-focal, moves all 4 limbs Psychiatric: normal affect Dx/Plan (1) Sepsis Code(s): A41.9 - SEPSIS, UNSPECIFIED ORGANISM Status: Acute Qualifiers: Sepsis type: sepsis due to unspecified organism Qualified Code(s): A41.9 - Sepsis, unspecified organism (2) Bacteremia Code(s): R78.81 - BACTEREMIA Status: Acute Comment: gm +ve rods, ? contaminant (3) HTN (hypertension) Code(s): I10 - ESSENTIAL (PRIMARY) HYPERTENSION Status: Chronic Qualifiers: Hypertension type: essential hypertension Qualified Code(s): I10 - Essential (primary) hypertension (4) Afib Code(s): I48.91 - UNSPECIFIED ATRIAL FIBRILLATION Status: Suspected Qualifiers: Atrial fibrillation type: chronic Qualified Code(s): I48.2 - Chronic atrial fibrillation (5) DM type 2 (diabetes mellitus, type 2) Status: Chronic Qualifiers: Diabetes mellitus continuous churn buttermaker insulin use: with continuous churn buttermaker use Diabetes mellitus complication status: with kidney complications Diabetes mellitus complication detail: with chronic kidney disease Chronic kidney disease stage : on chronic dialysis Qualified Code(s): E11.22 - Type 2 diabetes mellitus with diabetic chronic kidney disease; N18.6 - End stage renal disease; Z79.4 - jail (current) use of insulin; Z99.2 - Dependence on renal dialysis (6) Chronic anemia Code(s): D64.9 - ANEMIA, UNSPECIFIED Status: Chronic (7) ESRD (end stage renal disease) Code(s): N18.6 - END STAGE RENAL DISEASE Status: Chronic - Plan is on zosyn, will dc in am if repeat cultures are -ve -: await opinion, ?CT abd with contrast -: to ambulate with PT as tolerated -: continue midodrine, amiodarone, lipitor, coreg, lantus -: coumadin per pharmacy dosing, inr is 1.5 * . Review of Systems - Medications/Allergies Allergies/Adverse Reactions: Allergies Allergy/AdvReac Type Severity Reaction Status Date / Time codeine Allergy Verified 06/29/18 00:58 Medications: Current Medications Acetaminophen (Tylenol) 650 mg PO Q4H PRN PRN Reason: Headache/Fever/Mild Pain (1-3) Amiodarone HCl (Cordarone) 200 mg PO DAILY [facility] Last Admin: 07/03/18 07:51 Dose: 200 mg Atorvastatin Calcium (Lipitor) 10 mg PO DAILY [facility] Last Admin: 07/03/18 07:51 Dose: 10 mg Cinacalcet (Sensipar) 30 mg PO DAILY [facility] Last Admin: 07/03/18 07:51 Dose: 30 mg Dextrose/Water (Dextrose 50%) 25 gm SLOW IVP PRN PRN PRN Reason: Hypoglycemia Famotidine (Pepcid) 20 mg PO DAILY [facility] Last Admin: 07/03/18 07:51 Dose: 20 mg Glucagon (Glucagon) 1 mg IM PRN PRN PRN Reason: Hypoglycemia Piperacillin Sod/Tazobactam (Sod 2.25 gm/ Sodium Chloride) 100 mls @ 200 mls/ hr IVPB Q12HR [facility] Last Admin: 07/03/18 07:50 Dose: 100 mls Dextrose/Water (D5w) 1,000 mls @ 0 mls/hr IV .Q0M PRN PRN Reason: Hypoglycemia Insulin Human Lispro (Humalog) 0 units SC .MILD SLIDING SCALE PRN PRN Reason: Mild Correctional Scale Last Admin: 07/01/18 21:01 Dose: 3 unit Midodrine (Proamatine) 5 mg PO TID [facility] Last Admin: 07/03/18 07:51 Dose: 5 mg Miscellaneous Medication (Pharmacy To Dose) 0 each IVPB PRN PRN PRN Reason: VANC Pharmacy to Dose Miscellaneous Medication (Pharmacy To Dose) 1 each PO PRN PRN PRN Reason: Pharmacy to dose Hold Vancomycin For (Level >20) 0 each FS .AT DIALYSIS PRN PRN Reason: HOLD VANCOMYCIN IF LEVEL >20 Sevelamer Carbonate (Renvela) 1,600 mg PO TID-[facility] Last Admin: 07/03/18 11:23 Dose: 1,600 mg Sodium Chloride (Flush - Normal Saline) 10 ml IVF Q12HR [facility] Last Admin: 07/03/18 08:09 Dose: Not Given Sodium Chloride (Flush - Normal Saline) 10 ml IVF PRN PRN PRN Reason: Saline Flush Last Admin: 07/02/18 09:09 Dose: 10 ml Warfarin Sodium (Coumadin) 5 mg PO 1700 [facility] Last Admin: 07/02/18 16:36 Dose: 5 mg
--- NOTE | 2018-07-03 15:44 | PRG ---
DATE OF SERVICE: 07/03/2018 SUBJECTIVE: A 68-year-old female being seen for end-stage renal disease. The patient denies nausea, vomiting, or chest pain. OBJECTIVE: CONSTITUTIONAL: The patient is awake, alert. VITAL SIGNS: Afebrile, pulse 75, breathing 16, blood pressure 131/73. GENERAL APPEARANCE AND MENTAL STATUS: Fair. HEAD/NECK: Normocephalic. Atraumatic. EYES: EOMI. No deformity. EARS: Clear. No ulcers. NOSE: Intact. No lesions. MOUTH: Clear. No discharge. THROAT: Clear. No exudate. LUNGS: Clear. No crackles. CARDIAC: S1, S2. No rub. ABDOMEN: Benign. Bowel sounds positive. GENITALIA/RECTUM: Ortiz absent. BACK/EXTREMITIES: Edema 0+. NEUROLOGICAL: Alert and motor intact. LABORATORY DATA: Labs show hemoglobin 10.1. ASSESSMENT AND PLAN: 1. Stage 6 chronic kidney disease, stable. 2. Hypertension, stable. 3. Anemia, stable. 4. Medications based on glomerular filtration rate are appropriate. Job ID: [id number]
[2018-07-03] MEDS: Warfarin Sodium 5 MG TAB PO SCH (16:55)
[2018-07-04] MEDS: Piperacillin/Tazobactam 2.25 GM in Sodium Chloride 0.9% 100 ML IVPB SCH (08:41)
[2018-07-04] MEDS: Midodrine HCl 5 MG TAB PO SCH ×2 (08:41→16:47)
[2018-07-04] MEDS: Atorvastatin Calcium 10 MG TAB PO SCH (08:41)
[2018-07-04] MEDS: Sevelamer Carbonate 800 MG TAB PO SCH ×3 (08:41→16:55)
[2018-07-04] MEDS: Famotidine 20 MG TAB PO SCH (08:41)
[2018-07-04] MEDS: Amiodarone 200 MG TAB PO SCH (08:41)
[2018-07-04] MEDS: Cinacalcet HCl 30 MG TAB PO SCH (08:41)
--- NOTE | 2018-07-04 11:55 | PDOC.PN ---
- Subjective Encounter Start Date: 07/04/18 Encounter Start Time: 11:00 Subjective: no fever or abd pain -: feels good, wants to go home - Objective Resuscitation Status - Order Detail: 06/29/18 00:43 Resuscitation Status Routine Resuscitation Status: FULL: Full Resuscitation Discussed with: Patient and Daughter FRANCESCA Reviewed: Yes Vital Signs & Weight: Vital Signs (12 hours) Temp Pulse Resp BP Pulse Ox 07/04/18 07:40 97.6 F 69 18 114/73 98 Weight Weight 176 lb 12.972 oz Most Recent Monitor Data Heart Rate from ECG 70 NIBP 112/70 NIBP BP-Mean 84 Respiration from ECG 19 SpO2 97 I&O: 07/03/18 07/04/18 07/05/18 06:59 06:59 06:59 Intake Total 720 Balance 720 Result Diagrams: 06/30/18 04:45 06/30/18 04:45 Additional Labs: Accuchecks 07/04/18 07/03/18 07/03/18 04:41 19:43 17:23 POC Glucose 123 H 145 H 151 H Phys Exam - Physical Examination HEENT: PERRLA, moist MMs Neck: no JVD, supple Respiratory: no wheezing, no rales Cardiovascular: RRR, no significant murmur Gastrointestinal: soft, non-tender, positive bowel sounds Musculoskeletal: no edema, pulses present Neurological: non-focal, moves all 4 limbs Dx/Plan (1) Sepsis Code(s): A41.9 - SEPSIS, UNSPECIFIED ORGANISM Status: Acute Qualifiers: Sepsis type: sepsis due to unspecified organism Qualified Code(s): A41.9 - Sepsis, unspecified organism (2) Bacteremia Code(s): R78.81 - BACTEREMIA Status: Acute Comment: gm +ve rods..cornyebact is contaminant, repeat cultures are -ve (3) HTN (hypertension) Code(s): I10 - ESSENTIAL (PRIMARY) HYPERTENSION Status: Chronic Qualifiers: Hypertension type: essential hypertension Qualified Code(s): I10 - Essential (primary) hypertension (4) Afib Code(s): I48.91 - UNSPECIFIED ATRIAL FIBRILLATION Status: Suspected Qualifiers: Atrial fibrillation type: chronic Qualified Code(s): I48.2 - Chronic atrial fibrillation (5) DM type 2 (diabetes mellitus, type 2) Status: Chronic Qualifiers: Diabetes mellitus jail insulin use: with jail use Diabetes mellitus complication status: with kidney complications Diabetes mellitus complication detail: with chronic kidney disease Chronic kidney disease stage : on chronic dialysis Qualified Code(s): E11.22 - Type 2 diabetes mellitus with diabetic chronic kidney disease; N18.6 - End stage renal disease; Z79.4 - senior living (current) use of insulin; Z99.2 - Dependence on renal dialysis (6) Chronic anemia Code(s): D64.9 - ANEMIA, UNSPECIFIED Status: Chronic (7) ESRD (end stage renal disease) Code(s): N18.6 - END STAGE RENAL DISEASE Status: Chronic - Plan hemostable -: repeat blood cs are -ve, initial ones likely contaminant -: no fever, clinically stable -: dc pt home * . Review of Systems - Medications/Allergies Allergies/Adverse Reactions: Allergies Allergy/AdvReac Type Severity Reaction Status Date / Time codeine Allergy Verified 06/29/18 00:58 Medications: Current Medications Acetaminophen (Tylenol) 650 mg PO Q4H PRN PRN Reason: Headache/Fever/Mild Pain (1-3) Amiodarone HCl (Cordarone) 200 mg PO DAILY [facility] Last Admin: 07/04/18 08:41 Dose: 200 mg Atorvastatin Calcium (Lipitor) 10 mg PO DAILY [facility] Last Admin: 07/04/18 08:41 Dose: 10 mg Cinacalcet (Sensipar) 30 mg PO DAILY [facility] Last Admin: 07/04/18 08:41 Dose: 30 mg Dextrose/Water (Dextrose 50%) 25 gm SLOW IVP PRN PRN PRN Reason: Hypoglycemia Famotidine (Pepcid) 20 mg PO DAILY [facility] Last Admin: 07/04/18 08:41 Dose: 20 mg Glucagon (Glucagon) 1 mg IM PRN PRN PRN Reason: Hypoglycemia Piperacillin Sod/Tazobactam (Sod 2.25 gm/ Sodium Chloride) 100 mls @ 200 mls/ hr IVPB Q12HR [facility] Last Admin: 07/04/18 08:41 Dose: 100 mls Dextrose/Water (D5w) 1,000 mls @ 0 mls/hr IV .Q0M PRN PRN Reason: Hypoglycemia Insulin Human Lispro (Humalog) 0 units SC .MILD SLIDING SCALE PRN PRN Reason: Mild Correctional Scale Last Admin: 12/21/18 21:01 Dose: 3 unit Midodrine (Proamatine) 5 mg PO TID [facility] Last Admin: 07/04/18 08:41 Dose: 5 mg Miscellaneous Medication (Pharmacy To Dose) 1 each PO PRN PRN PRN Reason: Pharmacy to dose Sevelamer Carbonate (Renvela) 1,600 mg PO TID-[facility] Last Admin: 07/04/18 08:41 Dose: 1,600 mg Sodium Chloride (Flush - Normal Saline) 10 ml IVF Q12HR [facility] Last Admin: 07/04/18 08:42 Dose: 10 ml Sodium Chloride (Flush - Normal Saline) 10 ml IVF PRN PRN PRN Reason: Saline Flush Last Admin: 07/02/18 09:09 Dose: 10 ml Warfarin Sodium (Coumadin) 5 mg PO 1700 [facility] Last Admin: 07/03/18 16:55 Dose: 5 mg
--- NOTE | 2018-07-04 12:20 | PRG ---
DATE OF SERVICE: 07/04/2018 SUBJECTIVE: A 68-year-old female being seen for end-stage renal disease. The patient denies nausea, vomiting, or chest pain. OBJECTIVE: CONSTITUTIONAL: The patient is awake and alert. VITAL SIGNS: Temperature afebrile, pulse 69, breathing 16, blood pressure 114/70. GENERAL APPEARANCE AND MENTAL STATUS: Fair. HEAD/NECK: Normocephalic. Atraumatic. EYES: EOMI. No deformity. EARS: Clear. No ulcers. NOSE: Intact. No lesions. MOUTH: Clear. No discharge. THROAT: Clear. No exudate. LUNGS: Clear. No crackles. CARDIAC: S1, S2. No rub. ABDOMEN: Benign. Bowel sounds positive. GENITALIA/RECTUM: Ortiz absent. BACK/EXTREMITIES: Edema 0+. NEUROLOGICAL: Alert and motor intact. LABORATORY DATA: Labs show hemoglobin ASSESSMENT: 1. Stage 6 chronic kidney disease, stable. 2. Hypertension, stable. 3. Anemia, stable. 4. Medications based on glomerular filtration rate are appropriate. Job ID: [id number]
--- NOTE | 2018-07-04 14:33 | DIS ---
DATE OF ADMISSION: 06/28/2018 DATE OF DISCHARGE: 07/04/2018 DISCHARGE DISPOSITION: Home. PRIMARY DISCHARGE DIAGNOSES: 1. Acute encephalopathy, resolved. 2. Initial suspicion for sepsis and bacteremia, ruled out. 3. Chronic atrial fibrillation. 4. Diabetes mellitus type 2. 5. Chronic anemia. 6. End-stage renal disease, on hemodialysis. 7. Hypertension. PROCEDURES DONE DURING HOSPITALIZATION: CT brain done showed no acute intracranial abnormality. Chest x-ray done showed cardiomegaly. Abdominal ultrasound done showed moderate ascites, cholelithiasis, left renal cyst and atrophic kidneys. The patient had paracentesis done on 07/01/2018, by Interventional Radiology with removal of 1500 mL yellow-colored ascitic fluid. Echo with 2D Doppler showed EF of 30-35%, diastolic dysfunction, nrkpdprv-[id number]-bcdtnm aortic stenosis. Initial blood cultures 2/ grew Corynebacterium species. Repeat two sets of blood cultures done on the showed no growth. Influenza A and B antigen were negative. White count of 8.6 on admission, H and H 10 and 35, platelet count 168. INR on the is 1.5. Troponin was indeterminate, peaking up to 0.08, CK-MB 0.8. Albumin is 3.2. Ascitic fluid showed 6-9 wbc's and 210 rbc's. Ascitic fluid albumin was 1.8, LDH was 82. Serum LDH 201. DISCHARGE MEDICATION: 1. Amiodarone 200 mg p.o. daily. 2. Atorvastatin 10 mg p.o. daily. 3. Coreg 3.125 mg twice daily. 4. Sensipar 30 mg p.o. daily. 5. Fluticasone nasal spray twice daily. 6. Lantus 12 units subcu daily. 7. Sevelamer 1600 mg p.o. 3 times daily. 8. Coumadin 2.5 mg p.o. daily. 9. Midodrine 5 mg p.o. daily. ALLERGIES: CODEINE. INPATIENT CONSULT: Dr. Martell from Nephrology. DISCHARGE PLAN: The patient to follow up with Dr. Lam in two weeks and primary care physician in one week. BRIEF COURSE DURING HOSPITALIZATION: The patient initially was found down with altered mental state and was brought to the emergency room. She was essentially admitted for acute encephalopathy and to rule out sepsis. She had initial temperature of 101 on admission. The patient also dropped her systolic blood pressures to 80s and was initially admitted to [facility] with suspicion for sepsis. Two sets of blood cultures grew initially gram-positive rods and in view of this repeat cultures were done. The cultures from the 1st grew Corynebacterium species, likely contamination. They were both drawn in the same left arm. She was also found to have had ascites and had paracentesis done, which did not reveal any signs of SBP. She was on IV antibiotics, which has been discontinued at the time of discharge. She had echo with 2D Doppler done, which has not shown any vegetation. The patient remained afebrile all through her stay and had normal white count. She was wanting to go home from last 2 days to celebrate [place] and is being discharged home today. The patient has home health and will have INR drawn on Wednesday. She is otherwise hemodynamically stable. Midodrine has been added to her medication list to be taken once daily. She needs followup with Dr. Martell in two weeks. Please see the [id number] documentation for the day of discharge on [facility]. Job ID: [id number]
[2018-07-04] MEDS: Warfarin Sodium 5 MG TAB PO SCH (16:48)
[2018-07-04] MEDS ORDERED: Warfarin Sodium 5 MG TAB PO SCH (17:00)
[2018-07-04 17:23] VITALS: BP 129/79; TEMP 98.1
--- NOTE | 2018-07-05 12:37 | EKG ---
Test Reason : SEPSIS Blood Pressure : / mmHG Vent. Rate : 084 BPM Atrial Rate : 084 BPM P-R Int : 192 ms QRS Dur : 078 ms QT Int : 384 ms P-R-T Axes : 045 080 093 degrees QTc Int : 453 ms Normal sinus rhythm Low voltage QRS Septal infarct , age undetermined Abnormal ECG Confirmed by DESIREE EDWARDS ([id number]), purchase request editor YADIRA SALEEM ([id number]) on 07/05/2018 12:37:27 PM Referred By: Confirmed By:DESIREE EDWARDS
--- NOTE | 2018-07-05 22:17 | CON ---
DATE OF CONSULTATION: 07/04/2018 REASON FOR CONSULTATION: Bacteremia. HISTORY OF PRESENT ILLNESS: A 68-year-old with a history of type 2 diabetes and end-stage renal disease, on hemodialysis through an arteriovenous fistula, also with cardiomyopathy with AICD in place, who was admitted after the daughter left for about 30 minutes and upon returning found her mother on the floor. She had some change in her behavior, so the daughter brought the patient to the emergency room. The patient herself could not remember any of the details of the events. She declined any symptoms at that time. Initial findings included a temperature 101.3, pulse 83, respirations 18, BP 120/75. She was alert, although slightly confused and oriented to person, place, and year. Heart exam, lung examination, and abdominal examination were not remarkable except for mild abdominal distention. Initial findings included also white cell count 8.6, hemoglobin 10.8, and platelets 168, neutrophils 80%. Creatinine 6.58, sodium 137. Bilirubin 1.8, AST was 13, and ALT 8. Abdomen ultrasound was completed and it demonstrated moderate ascites, atrophic kidneys, but no gallbladder abnormalities noted. Paracentesis was carried out and ascitic fluid had only 69 wbc's. Albumin is 1.8, LDH 82, and I believe negative cultures in ascitic fluid. Since admission, the patient has remained afebrile and she had been given Zosyn and 1 dose of vancomycin I believe. Currently, she denies any headaches. She has been dialyzed, a little bit drowsy. No headaches. No visual symptoms, sore throat, odynophagia, or dysphagia. No dyspnea or chest pain. No abdominal pain or diarrhea. No joint symptoms. No back pain. PAST MEDICAL HISTORY: Includes type 2 diabetes, hypertension, end-stage renal disease on hemodialysis through an AV fistula, and ischemic cardiomyopathy with AICD in place. PAST SURGICAL HISTORY: Apparently, she has ascites and gets a paracentesis once a year. FAMILY HISTORY: Hypertension. SOCIAL HISTORY: Never smoker. ALLERGIES: CODEINE. CURRENT MEDICATIONS: 1. Zosyn. 2. Vancomycin 1 dose. 3. Amiodarone. 4. Lipitor. 5. Sensipar. 6. Pepcid. 7. Glucagon. PHYSICAL EXAMINATION: VITAL SIGNS: Temperature has been normal, BP 114/73, pulse of 69, and respirations 18. GENERAL: Appears in no distress. SKIN: Examination showed no areas of skin breakdown. The AV fistula is working properly. The left AICD pocket site does not appear inflamed. HEENT: No lymphadenopathy. Ocular movements conjugate. Nasal passages are patent. Oral cavity normal. She has numerous missing teeth. NECK: Supple. No jugular venous distention. LUNGS: Symmetric air entry. HEART: S1 and S2. Regular rate with a soft aortic murmur. ABDOMEN: Soft, not distended or tender. No ascites. No bladder distention. EXTREMITIES: She moves extremities on command. LABORATORY DATA: Followup lab data; white cell count is down to 4.9, hemoglobin 10, and platelets 162 with normal differential. Microbiology with 2 sets of blood cultures with Corynebacterium species. The sample is labeled as having being collected at same time. Repeat blood cultures 3 days later with no growth for 48 hours. Influenza A and B negative. Echocardiogram showed no vegetations, EF 35%. Chest x-ray with no infiltrates and there is triple-lumen catheter in the right side. ASSESSMENT AND PLAN: Type 2 diabetes, end-stage renal disease, on hemodialysis through an AV fistula, admitted with an episode of fall. What led to the fall is not clear, if it was just an accident or if the patient actually lost her mental state, this is certainly not clear. She had 1 episode of temperature elevation on arrival, which was not documented again. The blood cultures were more likely to represent contamination of the sample rather than true bacteremia. She does have an automatic implantable cardioverter-defibrillator in place. I would recommend repeating blood cultures down the road probably at dialysis, but I would not treat this finding at this point in time. There is no evidence of spontaneous bacterial peritonitis either at this point in time. Job ID: [id number] [facility]
== END 2018-07-04 17:17 | disposition home health service (06) | DRG 70 ==
LOC: ERS 20:14 → CCU 22:49 → T4-B 06-29 16:25
PROVIDERS: ADMIT Internal Medicine; ATTEND Internal Medicine
PROC: 5A1D70Z Performance of Urinary Filtration, Intermittent, Less than 6 Hours Per Day (ICD-10-PCS; principal; 2018-06-30)
PROC: 5A1D70Z Performance of Urinary Filtration, Intermittent, Less than 6 Hours Per Day (ICD-10-PCS; 2018-07-01)
PROC: 0W9G3ZZ Drainage of Peritoneal Cavity, Percutaneous Approach (ICD-10-PCS; 2018-07-01)
PROC: 5A1D70Z Performance of Urinary Filtration, Intermittent, Less than 6 Hours Per Day (ICD-10-PCS; 2018-07-04)
DX: G93.41 Metabolic encephalopathy (principal); N18.6 End stage renal disease; I12.0 Hypertensive chronic kidney disease with stage 5 chronic kidney disease or end stage renal disease; R18.8 Other ascites; E11.22 Type 2 diabetes mellitus with diabetic chronic kidney disease; D63.1 Anemia in chronic kidney disease; I25.5 Ischemic cardiomyopathy; I48.2 Chronic atrial fibrillation; Z99.2 Dependence on renal dialysis; Z95.810 Presence of automatic (implantable) cardiac defibrillator; Z88.5 Allergy status to narcotic agent; Z79.01 Long term (current) use of anticoagulants; Z79.4 Long term (current) use of insulin; Z79.899 Other long term (current) drug therapy
CPT/HCPCS: 36415; 36416; 36556; 49083; 70450; 71045; 74018; 76700; 80048; 80053; 80202; 82042; 82553; 83605; 83615; 84157; 84484; 85025; 85060; 85610; 85730; 87040; 87804; 89051; 93005; 93306; 96360; 96361; 96365; 96367; C1769; J2001; J2543; J3370; J7050; P9047

== ENCOUNTER 2018-11-30 09:16 | Inpatient (IN) | payer BC, MEDICARE ==
[2018-11-30 10:06] LABS: Hemoglobin 12.8 g/dL (12.0-16.0); Mean Corpuscular HGB CONC 31.9 g/dL (32.0-36.0); Mean Corpuscular Hemoglobin 27.5 pg (27.0-31.0); Mean Corpuscular Volume 86.2 fL (78.0-98.0); Mean Platelet Volume 9.6 fL (7.4-10.4); Platelet Count 150 thou/uL (130-400); RBC Distribution Width 15.3 % (11.5-14.5); Red Blood Cell (RBC) Count 4.65 mill/uL (4.20-5.40); White Blood Cell (WBC) Count 12.7 thou/uL (4.8-10.8)
[2018-11-30 10:20] LABS: Band 2 % (5-11); Lymphocytes 5 % (21-51); MDiff Complete? YES; Monocytes 4 % (0-10); Neutrophil 89 % (42-75); Ovalocytes SLIGHT = 2-5 cells (100X) (0-1/hpf); Platelet Morphology Comment Appears Adequate; Polychromasia SLIGHT = 2-3 cells (100X) (0-2/hpf)
[2018-11-30 10:28] LABS: ALT (SGPT) 10 U/L (8-55); AST (SGOT) 27 U/L (5-34); Albumin 3.2 g/dL (3.4-4.8); Alkaline Phosphatase 81 U/L (40-150); Anion Gap 19 mmol/L (10-20); BUN (Urea Nitrogen) 18 mg/dL (9.8-20.1); Bilirubin, Total 2.1 mg/dL (0.2-1.2); Calc. Creatinine Clearance 0 mL/min (70-130); Calcium 8.4 mg/dL (7.8-10.44); Carbon Dioxide 24 mmol/L (23-31); Chloride 95 mmol/L (98-107); Estimated GFR-MDRD 8; Globulin 5.1 g/dL (2.4-3.5); Glucose 137 mg/dL (80-115); Potassium 6.1 mmol/L (3.5-5.1); Protein, Total 8.3 g/dL (6.0-8.3); Sodium 132 mmol/L (136-145)
[2018-11-30] MEDS ORDERED: Piperacillin/Tazobactam 4.5 GM VIAL ONE (11:04)
--- NOTE | 2018-11-30 11:22 | RAD ---
PORTABLE CHEST ONE VIEW: 11/30/2018 9:44 a.m. HISTORY: Fever. Not responsive. COMPARISON: 06/29/2018 FINDINGS: Vascular stents on the right and a left-sided AICD are again seen. The heart is enlarged. There is c ontinued elevation of the right hemidiaphragm. No lobar consolidation, pneumothoraces, jose pulmona ry edema, or large effusions are seen. POS: MOLLY
--- NOTE | 2018-11-30 11:42 | CT ---
CT OF THE ABDOMEN AND PELVIS WITHOUT IV CONTRAST: INDICATION: History of altered mental status and fever. COMPARISON: None. FINDINGS: There are small bilateral pleural effusions. There is a moderate pericardial effusion. There is pro minent cardiomegaly. There is prominent ascites. There is a small hiatal hernia. Unopacified liver , spleen, pancreas, and adrenal glands are unremarkable appearing. The kidneys are atrophic. Unopacified small and large bowel appear within normal limits. There is a fluid- and fat-containing umbilical hernia. There is severe vascular calcification involving the abdominopelvic vasculature. There is a fibroid uterus. The bladder is decompressed. There is diffuse osteopenia. There is scattered degenerative and osteoarthritic change. IMPRESSION: 1. Cardiomegaly with pericardial effusion, small bilateral pleural effusions with prominent ascites may reflect volume overload or congestive heart failure. Entity such as sepsis cannot be entirely ex cluded. 2. Small hiatal hernia. 3. Unopacified solid organs reveal no definite abnormality. The kidneys are atrophic. 4. Fibroid uterus. 5. Unopacified large and small bowel appear within normal limits. 6. Mild anasarca. POS: TPC
[2018-11-30] MEDS ORDERED: metroNIDAZOLE 500 MG/100 ML BAG ONE (12:30)
[2018-11-30] MEDS ORDERED: Acetaminophen 650 MG Suppository ONE (12:40)
[2018-11-30 13:47] VITALS: BMI 29.1
[2018-11-30 14:06] LABS: Lactic Acid 1.7 mmol/L (0.5-2.2)
[2018-11-30] MEDS ORDERED: HumaLOG 300 UNITS/3 ML VIAL SC PRN (14:17)
[2018-11-30] MEDS ORDERED: Dextrose 50% Abboject 50 ML SYRINGE SLOW IVP PRN (14:17)
[2018-11-30] MEDS ORDERED: Dextrose 5% in Water 1,000 ML IV PRN (14:17)
[2018-11-30 14:59] LABS: PTT 41.6 SEC (22.9-36.1)
[2018-11-30] MEDS ORDERED: HumaLOG 300 UNITS/3 ML VIAL SC SCH (15:00)
[2018-11-30] MEDS ORDERED: Dextrose 50% Abboject 50 ML SYRINGE SLOW IVP SCH (15:00)
[2018-11-30] MEDS ORDERED: Vancomycin HCl 500 MG in Sodium Chloride 0.9% 100 ML IVPB SCH (15:15)
[2018-11-30] MEDS ORDERED: Vancomycin HCl 1.25 GM in Sodium Chloride 0.9% 250 ML 250 ML IVPB SCH (15:15)
[2018-11-30] MEDS ORDERED: HOLD VANCOMYCIN FOR LEVEL >20 FS SCH (15:15)
[2018-11-30] MEDS ORDERED: Vancomycin HCl 750 MG in Sodium Chloride 0.9% 250 ML 250 ML IVPB SCH (15:15)
[2018-11-30] MEDS ORDERED: Vancomycin HCl 1 GM in Premix Bag 1 BAG IVPB SCH ×2 (15:15→21:00)
[2018-11-30] MEDS: Heparin 5,000 UNITS/ML VIAL SC SCH ×2 (16:37→21:03)
[2018-11-30] MEDS ORDERED: VANCOMYCIN HCL 125 MG PO SCH (17:00)
[2018-11-30] MEDS: Maxitrol 0.1% Opth Oint 3.5 GM TUBE EA EYE SCH ×2 (17:31→21:05)
[2018-11-30] MEDS: Sevelamer Carbonate 800 MG TAB PO SCH (17:32)
[2018-11-30] MEDS: Vancomycin HCl 25 MG/ML Oral PO SCH ×2 (17:32→21:06)
[2018-11-30] MEDS: Piperacillin/Tazobactam 2.25 GM in Sodium Chloride 0.9% 100 ML IVPB SCH (17:32)
[2018-11-30] MEDS: Warfarin Sodium 5 MG TAB PO SCH (17:37)
--- NOTE | 2018-11-30 17:44 | HP ---
CHIEF COMPLAINT: Found unresponsive. HISTORY OF PRESENT ILLNESS: This patient is a 68-year-old female, who came via the emergency department. According to the patient's daughter, the patient was just discharged from [facility] yesterday. She does not really know what the particular reason she was there for, happens to be. She does believe the patient had C diff, but is not able to give any further details of the patient. The patient's primary infection was not known to the patient's daughter. The patient was supposed to get up this morning, go to the dialysis. When the family went to get her moving, they found her to be nonresponsive, so they ended up calling the ambulance to bring her to the emergency department. She has been a bit more responsive, but she is unable to give any additional history at this time. The patient was febrile at 103 at the time of the arrival. She had 1 L of fluids prior to arrival. REVIEW OF SYSTEMS: Cannot be obtained because of the patient's diminished mental status. PAST MEDICAL HISTORY: The best we can gather from talking to the patient's family and the medical records, the patient has diabetes; hypertension; end-stage renal disease, on dialysis. 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 Claire in the computer and called him and in fact he does follow the patient. She has a cardiomyopathy with an ejection fraction of 30% to 35% with diastolic dysfunction, xbwuvudl-zf-geeuhz aortic stenosis, and severe tricuspid regurgitation. The patient also has a heterogeneous appearing liver on the prior imaging and has ascites. The patient's family had previously indicated she gets paracentesis about once a year. She had paracentesis performed here in July with a fairly bland fluid drawn off with a volume of 1500 mL. PAST SURGICAL HISTORY: Other than the defibrillator being placed and the paracentesis, there are no other surgeries known to the records or to the patient's family. SOCIAL HISTORY: The patient is a nonsmoker, nondrinker, and nondrug user. The patient's daughter indicates that her mother is full code and that she and her 3 sisters would be the surrogate decision makers. ALLERGIES: CODEINE. HOME MEDICATIONS: 1. Amiodarone 200 mg daily. 2. Cinacalcet 30 mg p.o. daily. 3. Fluticasone 1 spray per nostril daily. 4. Folic acid and vitamin complex 1 p.o. daily. 5. Lantus 12 units subcu daily. 6. Humalog 3 units subcu once a day with her largest meal. 7. Lactulose 20 g p.o. b.i.d. 8. Levothyroxine 1 p.o. daily. 9. Memantine 5 mg daily. 10. Metoprolol succinate 12.5 mg one p.o. daily. 11. Midodrine 5 mg b.i.d. 12. Neomycin eyedrops t.i.d. 13. Renvela 800 mg t.i.d. 14. Vancomycin 125 mg p.o. q.i.d. 15. Warfarin 5 mg every Wednesday and Wednesday and one-half tablet every other day. PHYSICAL EXAMINATION: VITAL SIGNS: Most recent temp was 100.9 rectal, BP 110/75, pulse 87, respirations 20, O2 saturation 93% on 3 L. GENERAL APPEARANCE: The patient appears older than stated age. She is lying on her right side. She will speak, but only states "they won't bring me water." She has substantial periorbital edema, especially in the superior eyelids. HEENT: Pupils are reactive. She has no OP lesions. HEART: Regular. Subtle 1/6 murmur at the upper sternal borders, systolic in nature. LUNGS: Diminished, but clear bilaterally with no wheezes or rales. ABDOMEN: Slightly protuberant. It is nontender. Normal bowel sounds present. EXTREMITIES: There is no cyanosis, clubbing, or edema. Slightly diminished pulses bilaterally in the posterior tibial and dorsalis pedis. NEUROLOGIC: The patient appears encephalopathic. She will speak, but not tracking, not focused. She appears to spontaneously move all of her extremities. ER COURSE: The patient received Tylenol, Zosyn, Flagyl, vancomycin, and 1 L of IV fluids in the emergency department. LABORATORY DATA: White count 12.7, hemoglobin 12.8, platelets 150, 89 neutrophils, 2 bands, 5 lymphocytes. Sodium 132, potassium 6.1, chloride 95, BUN 18, creatinine 6.29, glucose 137, lactic acid 2.9, calcium 8.4, AST 27, ALT 10. DIAGNOSTIC DATA: Chest x-ray, vascular stents on the right and left-sided AICD. The heart is enlarged. Elevated right hemidiaphragm. No consolidations, edema, or effusions. CT of abdomen and pelvis, cardiomegaly with pericardial effusion, small bilateral pleural effusions with prominent ascites, small hiatal hernia, and mild anasarca. IMPRESSION AND PLAN: 1. Sepsis. The patient presented with white count, fever, relative hypotension with blood pressure down to 88/53, and increased oxygen requirements with known infection, specifically being Clostridium difficile, other infections unclarified at this time. The patient is admitted to the hospital. She had the broad-spectrum antibiotics in the emergency department. We will continue with the vancomycin and Zosyn until we can be more clear on the potential source. CT of the abdomen does not show toxic megacolon or evidence of significant colitis. We will attempt to obtain records from [facility] to find out what the underlying infection was that she was admitted there for originally. 2. Encephalopathy. The patient appears to have a toxic encephalopathy secondary to the sepsis. 3. Hyperkalemia. The patient has end-stage renal disease and has some hyperkalemia. She received fluids in the emergency department. I did obtain a stat EKG which does not show any significant peaked T-waves. We will need dialysis. Ultimately, we will give some glucose and insulin. 4. History of cardiomyopathy, on amiodarone and with a defibrillator in place. Unclear that she has had significant arrhythmias in the past, although it is not clear why she is on the amiodarone and it is expected that she likely has had some type of arrhythmias previously. 5. Diabetes mellitus. We will cover with sliding scale insulin. 6. Hypothyroidism. Continue with her usual home thyroid medications. 7. End-stage renal disease. Discussed with Dr. Claire. He will see the patient today. She was supposed to get dialysis today and has a little hyperkalemia, may need to get that done. Job ID: [id number]
[2018-11-30] MEDS ORDERED: Piperacillin/Tazobactam 3.375 GM in Sodium Chloride 0.9% 100 ML IVPB SCH (18:00)
[2018-11-30 18:26] LABS: HBSAg Index 0.31 S/CO (0-0.99); Hep B Surf Ag Non-Reactive S/CO (NonReactive)
[2018-11-30 18:30] LABS: HBSAB Concentration 65.12 mIU/mL; Hep B Surf AB Reactive (NonReactive)
[2018-11-30] MEDS ORDERED: Non-Formulary Item 1 EACH (Lactulose 10 Gm/15ml Oral Sol 20 GM) PO SCH (21:00)
[2018-11-30] MEDS ORDERED: Fluticasone Propionate Nasal Spray 16 gm Bottle NASAL SCH (21:00)
[2018-11-30] MEDS: Fluticasone Propionate Nasal Spray 16 gm Bottle NASAL SCH (21:04)
[2018-11-30] MEDS: Midodrine HCl 5 MG TAB PO SCH (21:04)
[2018-11-30] MEDS: Famotidine/PF 20 mg/2ml Vial SLOW IVP SCH (21:04)
--- NOTE | 2018-11-30 21:08 | CON ---
DATE OF CONSULTATION: 11/30/2018 HISTORY OF PRESENT ILLNESS: Ms. Caceres is a pleasant 68-year-old female, who has end-stage renal disease. Her daughter tells me it was from a combination of blood pressure and diabetes. She is followed primarily at [facility] per my discussion with her daughter. She is released from the hospital there yesterday. She presents today with altered mental status, hypotension, and a temperature of 103. Her mental status has improved. She has no recollection of the events surrounding this morning. Apparently, her daughter tried to wake her up to go to dialysis and she was confused and barely arousable and transferred here to the hospital. Emergency department records reflect that they tried to transfer back to the [facility], but [facility] declined to accept her. She had a CT of her abdomen and pelvis done in the emergency room, which showed a pericardial effusion and ascites and small bilateral pleural effusions. She has a history of congestive heart failure according to the daughter, but the daughter does not remember what her ejection fraction was. She does have a defibrillator in place, which would suggest that her ventricular function significantly compromised. Chest x-ray was done in the emergency room, did not show any infiltrates. She does have vascular stents on the right and AICD on the left. There is elevation of right hemidiaphragm. She was here in June. She was also encephalopathic on that admission, which resolved. Her blood cultures were negative. Her ejection fraction on that admission was 30% to 35%. She had dwjzvuzm-bh-bwtaid aortic stenosis. There is no mention of a pericardial effusion. She had 2/2 blood cultures growing a corynebacterium. Repeat blood cultures had no growth. She was febrile when she was admitted at that time as well and had a blood pressure in the 80s. She had a paracentesis ultrasound done on that admission, 1500 mL of ascites was withdrawn, but I see no evidence of cultures of the peritoneal fluid. PAST MEDICAL HISTORY: Remarkable for, 1. C difficile recently. Her daughter tells me she has been having diarrhea for several weeks, although daughter lives with her and spends most time with her. 2. Diabetes. 3. Hypertension. 4. Hypothyroidism, on replacement. 5. Lipid disorder. 6. History of coronary artery disease. 7. Peripheral vascular disease. 8. History of placement of vascular access in the right upper extremity. SOCIAL HISTORY: She is nonsmoker, nondrinker, nondrug user. FAMILY HISTORY: Negative for lung disease in early age. REVIEW OF SYSTEMS: A 10-point review of systems completed, is not reliable given her resolving encephalopathy. PHYSICAL EXAMINATION: GENERAL: Ms. Caceres is a pleasant 68-year-old female. VITAL SIGNS: Currently, heart rates 76, blood pressure 102/57 by [employer]am[employer]. I checked a blood pressure and it was 95 systolic with no paradox. Respiratory rate was in the teens. HEENT: Pupils are equal. She has a left exotropia. Sclerae anicteric. NECK: Supple. LUNGS: Clear. HEART: Regular rhythm. There is grade 2/6 systolic murmur. ABDOMEN: Soft. She has no abdominal tenderness or guarding. EXTREMITIES: Without clubbing, cyanosis, or edema. LABORATORY DATA: White count 12.7, hemoglobin 12.8, and platelets 150,000. Sodium 132, potassium 6.1, chloride 95, bicarb 24, BUN 18, creatinine 6.29. Bilirubin is 2.1, albumin is 3.2. No liver enzymes were done today. IMPRESSION AND PLAN: Hypotension with confusion, resolving. If she has been having diarrhea for quite some time, I suspect that her dry weight is dropped and she is intravascularly dry. I have ordered another 500 mL of saline. Clinically, it does not appear that the pericardial effusion is causing tamponade. It would not be unreasonable given the finding of pericardial fluid on the CT to repeat the echocardiogram. Empiric broad antimicrobial therapy has been started. She is in no distress at this time. I met with the daughter and answered all of her questions. TIME SPENT: This is a 50-minute consult, with greater than 50% of the time spent on the unit coordinating care. Job ID: [id number] [facility]TD[facility]
[2018-12-01] MEDS: Piperacillin/Tazobactam 2.25 GM in Sodium Chloride 0.9% 100 ML IVPB SCH ×2 (04:59→17:03)
[2018-12-01] MEDS: Levothyroxine Sodium 88 MCG TAB PO SCH (04:59)
[2018-12-01 05:03] LABS: #Eosinphils 0.1 thou/uL (0.0-0.7); #Lymphocytes 1.1 thou/uL (1.20-3.40); #Neutrophils 6.9 thou/uL (1.40-6.50); %Basophils 0.4 % (0.0-1.0); %Eosinophils 0.8 % (0.0-10.0); %Lymphocytes 11.8 % (21.0-51.0); %Monocytes 10.9 % (0.0-10.0); %Neutrophils 76.1 % (42.0-75.0); Hemoglobin 11.5 g/dL (12.0-16.0); Mean Corpuscular HGB CONC 31.9 g/dL (32.0-36.0); Mean Corpuscular Hemoglobin 27.6 pg (27.0-31.0); Mean Corpuscular Volume 86.4 fL (78.0-98.0); Mean Platelet Volume 9.1 fL (7.4-10.4); Platelet Count 154 thou/uL (130-400); RBC Distribution Width 14.8 % (11.5-14.5); Red Blood Cell (RBC) Count 4.16 mill/uL (4.20-5.40)
[2018-12-01 05:09] LABS: Prothrombin Time 22.4 SEC (12.0-14.7)
[2018-12-01 05:28] LABS: Anion Gap 16 mmol/L (10-20); BUN (Urea Nitrogen) 11 mg/dL (9.8-20.1); Calc. Creatinine Clearance 15 mL/min (70-130); Calcium 8.6 mg/dL (7.8-10.44); Carbon Dioxide 27 mmol/L (23-31); Chloride 97 mmol/L (98-107); Estimated GFR-MDRD 12; Glucose 134 mg/dL (80-115); Potassium 3.5 mmol/L (3.5-5.1); Sodium 136 mmol/L (136-145)
--- NOTE | 2018-12-01 08:46 | PDOC.PN ---
- Subjective Encounter Start Date: 12/01/18 Encounter Start Time: 12:40 Subjective: Patient was asking to go home earlier, now sleeping after lunch. -: BP better. No complaints. - Objective Resuscitation Status - Order Detail: 11/30/18 13:52 Resuscitation Status Routine Resuscitation Status: FULL: Full Resuscitation MAR Reviewed: Yes Vital Signs & Weight: Vital Signs (12 hours) Temp 12/01/18 07:15 97.0 F L 12/01/18 04:00 97.8 F 12/01/18 00:10 98.6 F Weight Weight 175 lb 0.752 oz Most Recent Monitor Data Heart Rate from ECG 70 NIBP 92/76 NIBP BP-Mean 81 Respiration from ECG 24 SpO2 93 I&O: 11/30/18 12/01/18 12/02/18 06:59 06:59 06:59 Intake Total 360 Balance 360 Result Diagrams: 12/01/18 04:08 12/01/18 04:08 Additional Labs: Accuchecks 12/01/18 11/30/18 11/30/18 05:48 20:41 16:21 POC Glucose 132 H 92 119 H Phys Exam - Physical Examination Constitutional: NAD HEENT: moist MMs Respiratory: no wheezing, no rales, no rhonchi Cardiovascular: RRR Gastrointestinal: soft, positive bowel sounds Neurological: non-focal Deviation from normal: sleeping, when I stimulate her she mumbled that ok and rolled over on side to sleep more Dx/Plan (1) Sepsis with hypotension Code(s): A41.9 - SEPSIS, UNSPECIFIED ORGANISM; I95.9 - HYPOTENSION, UNSPECIFIED Status: Acute Comment: improved with fluids and abx, on Zosyn and Vancomycin since 11/30/18, hx of previous C. diff so will check stool studies (2) Acute metabolic encephalopathy Code(s): G93.41 - METABOLIC ENCEPHALOPATHY Status: Acute Comment: improving (3) ESRD on dialysis Code(s): N18.6 - END STAGE RENAL DISEASE; Z99.2 - DEPENDENCE ON RENAL DIALYSIS Status: Chronic Comment: Dr. Claire consulted (4) Hyperkalemia Code(s): E87.5 - HYPERKALEMIA Status: Resolved (5) Cardiomyopathy Code(s): I42.9 - CARDIOMYOPATHY, UNSPECIFIED Status: Chronic (6) Pericardial effusion Code(s): I31.3 - PERICARDIAL EFFUSION (NONINFLAMMATORY) Status: Acute Comment: checking ECHO - Plan cont current plan of care, continue antibiotics, PT/OT * . - Discharge Day Encounter end time: 12:55
[2018-12-01 09:08] LABS: Vancomycin, Random 10.6 ug/mL (See Comment)
[2018-12-01] MEDS: Vancomycin HCl 25 MG/ML Oral PO SCH ×4 (09:16→22:02)
[2018-12-01] MEDS: Heparin 5,000 UNITS/ML VIAL SC SCH ×4 (09:17→22:05)
[2018-12-01] MEDS: Maxitrol 0.1% Opth Oint 3.5 GM TUBE EA EYE SCH ×3 (09:17→22:03)
[2018-12-01] MEDS: Midodrine HCl 5 MG TAB PO SCH ×2 (09:17→22:06)
[2018-12-01] MEDS: Fluticasone Propionate Nasal Spray 16 gm Bottle NASAL SCH ×2 (09:18→22:04)
[2018-12-01] MEDS: Amiodarone 200 MG TAB PO SCH (09:19)
[2018-12-01] MEDS: Cinacalcet HCl 30 MG TAB PO SCH (09:19)
[2018-12-01] MEDS: Sevelamer Carbonate 800 MG TAB PO SCH ×3 (09:19→17:03)
[2018-12-01] MEDS: Insulin Glargine 12 UNITS in Pre-Filled Syringe 1 EACH SC SCH (09:20)
--- NOTE | 2018-12-01 09:43 | CON ---
DATE OF CONSULTATION: 11/30/2018 CONSULTING PHYSICIAN: Dr. Del Valle. REASON FOR CONSULTATION: End-stage renal disease evaluation and care. REASON FOR ADMISSION: Altered mentation. HISTORY OF PRESENT ILLNESS: This is a 68-year-old female with history of end-stage renal disease, hypertension, hypothyroidism, came to the hospital with altered mentation. The patient is not able to give a good history. The patient was recently discharged from [facility] for a C diff infection. The patient was also found to have fever on admission. The patient . She is due for dialysis today. Her potassium was elevated at 6.1. Nephrology was consulted. The patient gets dialysis Wednesday, Wednesday, Wednesday. PAST MEDICAL HISTORY: Positive for end-stage renal disease, diabetes, hypothyroidism, hypertension. PAST SURGICAL HISTORY: Dialysis access placement and defibrillator. HOME MEDICATIONS: 1. Amiodarone. 2. Atorvastatin. 3. Carvedilol. 4. Lantus. 5. Humalog. 6. Levothyroxine. 7. Midodrine. 8. Sensipar. 9. Warfarin. ALLERGIES: CODEINE. SOCIAL HISTORY: No smoking, alcohol, or drugs. FAMILY HISTORY: No significant history of kidney disease. REVIEW OF SYSTEMS: Could not be obtained due to altered mentation. PHYSICAL EXAMINATION: GENERAL: This is a well-built female, in no apparent distress. VITAL SIGNS: Temperature 101.8, pulse 74, respiratory rate 18, blood pressure 102/57. HEENT: Atraumatic and normocephalic: NECK: Supple. CV: S1 and S2 heard. Rate and rhythm regular. RESPIRATORY: Clear. GI: Abdomen is soft. MUSCULOSKELETAL: 1+ edema. DERMATOLOGIC: No skin rash. NEUROLOGIC: Altered, awake, but not able to answer well. LABORATORY DATA: Hemoglobin is 12.8, potassium 6.1, BUN is 18, creatinine 6.2. ASSESSMENT: 1. End-stage renal disease. Continue on hemodialysis. Plan is to have dialysis today. 2. Hyperkalemia. We will have emergent dialysis. 3. Edema, controlled. 4. Anemia, controlled hemoglobin. 5. Hypertension . Prognosis is guarded. Plan is to have dialysis as tolerated. Limit potassium intake. We will follow. Thank you for the consult. Job ID: [id number]
[2018-12-01] MEDS ORDERED: Vancomycin HCl 750 MG in Sodium Chloride 0.9% 250 ML 250 ML IVPB SCH (10:00)
--- NOTE | 2018-12-01 12:55 | PRG ---
DATE OF SERVICE: 12/01/2018 SUBJECTIVE: Patient was seen and examined at bedside and overnight events noted. Patient denies any shortness of breath or chest pain or palpitation. No history of nausea or vomiting or diarrhea or fever or chills or cramps. OBJECTIVE: GENERAL: This is a well-built female, in no acute distress. VITAL SIGNS: Temperature 97. Pulse 70. Respiratory rate . Blood pressure 92/76. HEENT: Atraumatic, normocephalic. Oral mucosa is moist NECK: Supple. CARDIOVASCULAR: S1, S2 heard. Rate and rhythm regular. RESPIRATORY: Clear to auscultation. GASTROINTESTINAL: Abdomen is soft. MUSCULOSKELETAL: No tenderness. No edema. DERMATOLOGIC: No skin rash. NEUROLOGIC: Alert and awake and oriented X3. No focal neurologic deficits. Moving all the extremities. PSYCHIATRIC: Mood and affect normal. LABORATORY DATA: Potassium 3.5, BUN is 11, creatinine is 4.3. ASSESSMENT AND PLAN: 1. End-stage renal disease. Continue on dialysis as tolerated. Had dialysis yesterday, tolerated well. We will continue dialysis Wednesday, Wednesday, and Wednesday. No need for dialysis today. 2. Hyperkalemia, better. 3. Altered mentation, better. 4. Acute hypoxic respiratory failure, better. 5. Anemia, mild. 6. Hypotension, stable. Plan to continue on dialysis as tolerated. Monitor blood pressure closely. Job ID: [id number]
[2018-12-01 13:42] VITALS: BP 110/69
--- NOTE | 2018-12-01 16:05 | PRG ---
DATE OF SERVICE: 12/01/2018 SUBJECTIVE: Ms. Caceres has no new complaints. She is awaken from sleep this morning and said she had a good night. OBJECTIVE: VITAL SIGNS: She is afebrile, heart rate 63, blood pressure 103/66, respiratory rate 16. LUNGS: Clear. HEART: Regular rhythm. S1 and S2 are almost absent. ABDOMEN: Soft and nontender. EXTREMITIES: Without asymmetry or edema. LABORATORY DATA: White count 9.9, hemoglobin 11.5, platelets 154,000. Electrolytes are unremarkable. BUN 11, creatinine 4.33. IMPRESSION: Pericardial effusion seen on CT. There is no evidence of tamponade by my blood pressure checks yesterday. We are awaiting the echocardiogram. She continues on broad antimicrobial therapy. Blood cultures and urine cultures are negative so far. Job ID: [id number]
[2018-12-01] MEDS: Warfarin Sodium 5 MG TAB PO SCH (17:04)
[2018-12-01] MEDS: Famotidine/PF 20 mg/2ml Vial SLOW IVP SCH (22:06)
[2018-12-02 05:22] LABS: INR-International Normal Ratio 2.1; Prothrombin Time 23.5 SEC (12.0-14.7)
[2018-12-02] MEDS: Piperacillin/Tazobactam 2.25 GM in Sodium Chloride 0.9% 100 ML IVPB SCH ×2 (05:47→14:59)
[2018-12-02] MEDS: Levothyroxine Sodium 88 MCG TAB PO SCH (05:48)
[2018-12-02 07:56] LABS: Vancomycin, Random 20.2 ug/mL (See Comment)
[2018-12-02] MEDS: Sevelamer Carbonate 800 MG TAB PO SCH ×3 (08:23→17:12)
[2018-12-02] MEDS: Fluticasone Propionate Nasal Spray 16 gm Bottle NASAL SCH ×2 (08:24→20:35)
[2018-12-02] MEDS: Amiodarone 200 MG TAB PO SCH (08:24)
[2018-12-02] MEDS: Cinacalcet HCl 30 MG TAB PO SCH (08:24)
[2018-12-02] MEDS: Heparin 5,000 UNITS/ML VIAL SC SCH (08:24)
[2018-12-02] MEDS: Insulin Glargine 12 UNITS in Pre-Filled Syringe 1 EACH SC SCH (08:25)
[2018-12-02] MEDS: Maxitrol 0.1% Opth Oint 3.5 GM TUBE EA EYE SCH ×3 (08:26→20:37)
[2018-12-02] MEDS: Vancomycin HCl 25 MG/ML Oral PO SCH ×4 (08:26→20:36)
[2018-12-02] MEDS: Midodrine HCl 5 MG TAB PO SCH ×2 (08:26→20:36)
--- NOTE | 2018-12-02 11:03 | PRG ---
DATE OF SERVICE: 12/02/2018 SUBJECTIVE: Patient was seen and examined at bedside and overnight events noted. Patient denies any shortness of breath or chest pain or palpitation. No history of nausea or vomiting or diarrhea or fever or chills or cramps. OBJECTIVE: GENERAL: This is a well-built female, in no apparent distress. VITAL SIGNS: Temperature 97.0. Heart rate 64. Respiratory rate 18. Blood pressure 126/49. HEENT: Atraumatic, normocephalic. Oral mucosa is moist NECK: Supple. CARDIOVASCULAR: S1, S2 heard. Rate and rhythm regular. RESPIRATORY: Clear to auscultation. GASTROINTESTINAL: Abdomen is soft. MUSCULOSKELETAL: No tenderness. No edema. DERMATOLOGIC: No skin rash. NEUROLOGIC: Alert and awake and oriented X3. No focal neurologic deficits. Moving all the extremities. PSYCHIATRIC: Mood and affect normal. LABORATORY DATA: Not done today. ASSESSMENT AND PLAN: 1. End-stage renal disease. Continue on dialysis. 2. Hypotensive. We will monitor. 3. Hyperkalemia, better. 4. Altered mentation. 5. Anemia. Plan to continue on dialysis as tolerated. Job ID: [id number]
--- NOTE | 2018-12-02 12:31 | PRG ---
DATE OF SERVICE: 12/02/2018 SUBJECTIVE: Natalie Caceres still says she is still having diarrhea. They have been unable to get a stool specimen. Apparently, she has lactulose ordered and night nurses have been given lactulose today. Nurses have been holding it. The lactulose needs to be stopped. She had an ammonia 30 on presentation. She does have radiographic appearance of liver disease, but no family members has presented evidence of a history of a hepatic encephalopathy, although I suspect she was started on this because this has occurred in the past. Her main complaint is diarrhea and we think that she has significant volume losses via diarrhea, so we should hold her lactulose for now. She continues to have diarrhea and she is C diff negative and off lactulose, we might consider consulting Gastroenterology. I had initially placed a consult today, but I canceled it when I realized she has been getting lactulose at night. Microbiology is all negative. Blood cultures are negative today. Her urine cultures negative. OBJECTIVE: LUNGS: Clear. HEART: Regular rhythm. ABDOMEN: Soft. IMPRESSION: 1. Status post altered mental status and hypotension on presentation that resolved quickly with volume replacement. 2. Enteric losses may be the explanation for this and central nervous system hypoperfusion. 3. End-stage renal disease, on dialysis. 4. History of C. diff colitis. 5. History of getting majority of her care recently at [facility]. 6. Diabetes. 7. Hypertension. 8. Status post dialysis for over a years secondary to diabetic renal failure. 9. History of cardiomyopathy with ejection fraction of 30% to 35% and moderate to severe aortic stenosis. An echocardiogram was done just this morning. 10. Pericardial effusion seen on abdomen and pelvis CT on presentation on . 11. She did not have clinical evidence of tamponade, i.e., no pulsus paradoxus when checked with the manual blood pressure cuff. 12. Clinical appearance of Graves eye disease. No history reported of Graves disease in the past. 13. History of paracentesis in the distant past once the year and then here in July, no fluid was cultured. It is unclear if this is related to her heart function or primary liver disease. 14. Deconditioning. PLAN: Continue medical management. She has dialysis today. An arm blood pressure was low this morning, but the leg blood pressure did not confirm the low blood pressure. I suspect this is erroneous reading. She probably should not have any volume removed with dialysis. This will be determined by the radiologist and the gaming manager. She has exact same way yesterday and today, which is impossible. I do not believe that weights are accurate. She really should be weighed on a standing scale We will follow. Job ID: [id number]
[2018-12-02] MEDS: Warfarin Sodium 5 MG TAB PO SCH (17:12)
[2018-12-02] MEDS: Albumin 25% 25 GM/100 ML BOT IVPB SCH ×2 (17:47→17:49)
--- NOTE | 2018-12-02 18:22 | PDOC.PN ---
- Subjective Encounter Start Date: 12/02/18 Encounter Start Time: 18:10 Subjective: f/u for sepsis of unclear source. Apparently dehydrated receiving a -: bolus of 1L NS with HD today. Feels better overall. - Objective Resuscitation Status - Order Detail: 11/30/18 13:52 Resuscitation Status Routine Resuscitation Status: FULL: Full Resuscitation MAR Reviewed: Yes Vital Signs & Weight: Vital Signs (12 hours) Temp 12/02/18 15:10 98.0 F 12/02/18 11:05 97.7 F 12/02/18 07:42 97.0 F L Weight Admit Weight 175 lb 0.752 oz Weight 175 lb 0.752 oz Most Recent Monitor Data Heart Rate from ECG 71 NIBP 117/80 NIBP BP-Mean 92 Respiration from ECG 23 SpO2 99 I&O: 12/01/18 12/02/18 12/03/18 06:59 06:59 06:59 Intake Total 360 Balance 360 Result Diagrams: 12/01/18 04:08 12/01/18 04:08 Additional Labs: Accuchecks 12/02/18 12/02/18 12/02/18 16:30 10:31 06:45 POC Glucose 72 87 84 12/02/18 12/01/18 00:37 20:11 POC Glucose 119 H 81 Microbiology 12/02/18 13:31 Stool C. difficile GDH Antigen & Toxins - Final 11/30/18 09:30 Urine Straight Catheter Urine Culture - Final NO GROWTH AT 48 HOURS 11/30/18 09:49 Venous blood - Left Hand Blood Culture - Preliminary NO GROWTH AT 48 HOURS 11/30/18 09:39 Venous blood - Left Arm Blood Culture - Preliminary NO GROWTH AT 48 HOURS Laboratory Tests 11/30/18 11/30/18 11/30/18 09:38 14:41 17:32 WBC 12.7 H Neutrophils % Neutrophils % (Manual) 89 H INR 2.0 Random Vancomycin Hep Bs Antigen Non-Reactive Hep Bs Antibody Reactive Hep Bs Antibody Index 65.12 12/01/18 12/01/18 12/02/18 04:08 04:08 04:39 WBC Neutrophils % 76.1 H Neutrophils % (Manual) INR 2.0 2.1 Random Vancomycin Hep Bs Antigen Hep Bs Antibody Hep Bs Antibody Index 12/02/18 07:20 WBC Neutrophils % Neutrophils % (Manual) INR Random Vancomycin 20.2 Hep Bs Antigen Hep Bs Antibody Hep Bs Antibody Index Radiology Reviewed by me: Yes (2D echo - EF55%, mod-severe TR) EKG Reviewed by me: Yes (Tele - SR) Phys Exam - Physical Examination Constitutional: NAD alert, responsive HEENT: PERRLA, sclera anicteric, oral pharynx no lesions Neck: no nodes, no JVD, supple, full ROM Respiratory: no wheezing, no rales, no rhonchi, clear to auscultation bilateral S1, S2 Cardiovascular: RRR, no significant murmur, no rub, gallop Gastrointestinal: soft, non-tender, no distention, positive bowel sounds Musculoskeletal: no edema, pulses present Neurological: normal sensation, moves all 4 limbs Psychiatric: A&O x 3 Skin: normal turgor, cap refill <2 seconds Dx/Plan (1) Sepsis with hypotension Code(s): A41.9 - SEPSIS, UNSPECIFIED ORGANISM; I95.9 - HYPOTENSION, UNSPECIFIED Status: Acute Comment: Improved, continue Vanc/Zosyn, monitor BP trend, avoid anti-hypertensives (2) Acute metabolic encephalopathy Code(s): G93.41 - METABOLIC ENCEPHALOPATHY Status: Acute Comment: Resolving (3) ESRD on dialysis Code(s): N18.6 - END STAGE RENAL DISEASE; Z99.2 - DEPENDENCE ON RENAL DIALYSIS Status: Chronic Comment: HD per Renal service, 1L NS bolus with HD today (4) Cardiomyopathy Code(s): I42.9 - CARDIOMYOPATHY, UNSPECIFIED Status: Chronic Comment: Stable , EF preserved (5) DM type 2 (diabetes mellitus, type 2) Status: Chronic Qualifiers: Diabetes mellitus mcc insulin use: with mcc use Diabetes mellitus complication status: with kidney complications Diabetes mellitus complication detail: with chronic kidney disease Chronic kidney disease stage : on chronic dialysis Qualified Code(s): E11.22 - Type 2 diabetes mellitus with diabetic chronic kidney disease; N18.6 - End stage renal disease; Z79.4 - FDC (current) use of insulin; Z99.2 - Dependence on renal dialysis Comment: ISS, Glargine - Plan continue antibiotics, PT/OT, certified social workers in health care, out of bed/ambulate, DVT proph w/ SCDs Stable currently -: Continue Vanc/Zosyn another 24h -: OOB with PT -: HD per Renal service -: AM lab: CBC * Home in am 12/03/18
[2018-12-02] MEDS: Famotidine/PF 20 mg/2ml Vial SLOW IVP SCH ×2 (20:37→21:03)
[2018-12-03] MEDS: Piperacillin/Tazobactam 2.25 GM in Sodium Chloride 0.9% 100 ML IVPB SCH (04:00)
[2018-12-03 04:57] LABS: INR-International Normal Ratio 2.6; Prothrombin Time 27.9 SEC (12.0-14.7)
[2018-12-03] MEDS: Levothyroxine Sodium 88 MCG TAB PO SCH (05:46)
[2018-12-03 05:55] LABS: Band 6 % (5-11); Eosinophils 1 % (0-10); Hemoglobin 11.7 g/dL (12.0-16.0); Hypochromia SLIGHT = 6-15 cells (100X) (0-5/hpf); Lymphocytes 13 % (21-51); MDiff Complete? YES; Mean Corpuscular HGB CONC 30.9 g/dL (32.0-36.0); Mean Corpuscular Hemoglobin 27.1 pg (27.0-31.0); Mean Corpuscular Volume 87.6 fL (78.0-98.0); Mean Platelet Volume 9.2 fL (7.4-10.4); Monocytes 8 % (0-10); Neutrophil 72 % (42-75); Ovalocytes SLIGHT = 2-5 cells (100X) (0-1/hpf); Platelet Count 159 thou/uL (130-400); Platelet Morphology Comment Appears Adequate; RBC Distribution Width 15.4 % (11.5-14.5); Red Blood Cell (RBC) Count 4.33 mill/uL (4.20-5.40); White Blood Cell (WBC) Count 7.1 thou/uL (4.8-10.8)
[2018-12-03 07:16] VITALS: TEMP 97.3
--- NOTE | 2018-12-03 09:07 | DIS ---
DATE OF ADMISSION: 11/30/2018 DATE OF DISCHARGE: 12/03/2018 DISCHARGE DIAGNOSES: 1. Sepsis with hypotension, organism not identified, resolved. 2. Acute metabolic encephalopathy, multifactorial, resolving. 3. End-stage renal disease with hemodialysis. 4. Diabetes mellitus, type 2, insulin requiring with end-stage renal disease. 5. Deconditioning. 6. Chronic anticoagulation with Coumadin. CONSULTATIONS: 1. Dr. Claire with Nephrology Service. 2. Dr. Waller with Pulmonology/Critical Care Service. PERTINENT LABORATORY AND X-RAY FINDINGS: Potassium ranged between 3.5 to 6.1. Creatinine ranged between 4.33 to 6.29. Lactic acid level ranged between 1.7 to 2.9. CBC showed a white blood cell count ranging between 7.1 to 12.7, hemoglobin ranged between 11.5 to 12.8. INR ranged between 2.0 to 2.6. Hepatitis B surface antigen nonreactive. Hepatitis C antibody reactive. Blood cultures x2 dated 11/30/2018 showed no growth at 48 hours. Urine culture dated 11/30/2018 showed no growth at 48 hours. C difficile antigen and toxin dated 12/02/2018, negative. Portable chest x-ray dated 11/30/2018 showed left-sided AICD device in place. No focal infiltrate identified. CT of the abdomen and pelvis dated 11/30/2018 showed cardiomegaly with pericardial effusion. Ascites noted. 2D transthoracic echocardiogram dated 12/02/2018 showed ejection fraction of 50% to 55%. Brrgvacb-[id number] right ventricular hypertrophy. [id number] tricuspid valve regurgitation. Small to medium pericardial effusion without tamponade. HOSPITAL COURSE: The patient was initially admitted to the intermediate care unit after presenting unresponsive with suspected sepsis meeting criteria to include elevated white blood cell count, fever, and hypotension. The patient was placed on empiric antibiotic coverage with Zosyn and vancomycin. Pending blood and urine culture evaluation. No specific organism was identified during the hospital course as stated previously with negative blood and urine culture results. The patient continued on antibiotic coverage empirically throughout the hospital course. The patient underwent repeat testing for questionable history of recent Clostridium difficile colitis. However, C difficile antigen and toxin were negative as stated previously. The patient's overall mentation improved with supportive management including fluid replacement with hemodialysis, which she underwent during her hospital course. The patient overall clinically stabilized with general supportive management and adjustment to her antihypertensive regimen. Overall, the patient did remain clinically stable and at baseline functional status prior to discharge. I have examined the patient at the time of discharge and discussed followup instructions. The patient verbalizes understanding and agreement ready for discharge on 12/03/2018. DISCHARGE MEDICATIONS: 1. Amiodarone 200 mg p.o. daily. 2. Sensipar 30 mg p.o. daily. 3. Flonase 1 spray in each naris daily. 4. Folic acid with vitamin B 1 tablet p.o. daily. 5. Glargine 12 units subcutaneously daily. 6. Humalog 3 units subcutaneously daily with meals. 7. Levothyroxine 88 mcg p.o. daily. 8. Namenda 5 mg p.o. daily. 9. Midodrine 5 mg p.o. b.i.d. 10. Maxitrol eye ointment apply topically t.i.d. 11. Renvela 1600 mg p.o. t.i.d. 12. Coumadin 5 mg p.o. on Wednesday and Wednesday with 2.5 mg every other day. 13. Lactulose 20 g p.o. b.i.d., hold until 12/05/2018. 14. Toprol-XL 12.5 mg p.o. daily, hold until 12/05/2018. FOLLOWUP: The patient to follow up with her primary care provider, Angie Hall within 7 days of discharge. The patient will follow up with Dr. Claire with Nephrology Service. CONDITION ON DISCHARGE: Fair. ACTIVITY: Ad-wilmer. DIET: ADA and renal. CODE STATUS: Full. DISPOSITION: To home on 12/03/2018. TIME SPENT: Total time preparing and coordinating discharge is 32 minutes. Job ID: [id number]
[2018-12-03] MEDS: Sevelamer Carbonate 800 MG TAB PO SCH (09:22)
[2018-12-03] MEDS: Maxitrol 0.1% Opth Oint 3.5 GM TUBE EA EYE SCH (09:23)
[2018-12-03] MEDS: Amiodarone 200 MG TAB PO SCH (09:23)
[2018-12-03] MEDS: Midodrine HCl 5 MG TAB PO SCH (09:23)
[2018-12-03] MEDS: Vancomycin HCl 25 MG/ML Oral PO SCH (09:23)
[2018-12-03] MEDS: Fluticasone Propionate Nasal Spray 16 gm Bottle NASAL SCH (09:23)
[2018-12-03] MEDS: Cinacalcet HCl 30 MG TAB PO SCH (09:23)
[2018-12-03] MEDS: Insulin Glargine 12 UNITS in Pre-Filled Syringe 1 EACH SC SCH (09:25)
--- NOTE | 2018-12-03 12:26 | PRG ---
DATE OF SERVICE: 12/03/2018 SUBJECTIVE: Patient was seen and examined at bedside and overnight events noted. Patient denies any shortness of breath or chest pain or palpitation. No history of nausea or vomiting or diarrhea or fever or chills or cramps. OBJECTIVE: GENERAL: This is a well-built female, in no apparent distress. VITAL SIGNS: Temperature 97.3. Heart rate 68. Respiratory rate 18. Blood pressure 97/67. HEENT: Atraumatic, normocephalic. Oral mucosa is moist NECK: Supple. CARDIOVASCULAR: S1, S2 heard. Rate and rhythm regular. RESPIRATORY: Clear to auscultation. GASTROINTESTINAL: Abdomen is soft. MUSCULOSKELETAL: No tenderness. No edema. DERMATOLOGIC: No skin rash. NEUROLOGIC: Alert and awake and oriented X3. No focal neurologic deficits. Moving all the extremities. PSYCHIATRIC: Mood and affect normal. LABORATORY DATA: Not done today. ASSESSMENT AND PLAN: 1. End-stage renal disease. Continue dialysis Wednesday, Wednesday, and Wednesday. 2. Altered mentation, better. 3. Hypotension, stable. 4. Hyperkalemia, better. 5. Anemia. We will monitor. The patient is feeling better. Continue dialysis as tolerated. Job ID: [id number]
--- NOTE | 2018-12-03 13:32 | EKG ---
Test Reason : Blood Pressure : / mmHG Vent. Rate : 075 BPM Atrial Rate : 075 BPM P-R Int : 224 ms QRS Dur : 076 ms QT Int : 454 ms P-R-T Axes : 069 090 086 degrees QTc Int : 506 ms Sinus rhythm with 1st degree A-V block Rightward axis Cannot rule out Anterior infarct (cited on or before 28-JUN-2018) Abnormal ECG When compared with ECG of 28-JUN-2018 20:29, LA interval has increased Questionable change in initial forces of Septal leads Nonspecific T wave abnormality no longer evident in Anterior leads QT has lengthened Confirmed by DR. Gisele RESENDIZ ([id number]) on 12/03/2018 1:31:48 PM Referred By: BETTY Confirmed By:DR. Gisele RESENDIZ
== END 2018-12-03 11:29 | disposition home or self-care (01) | DRG 871 ==
LOC: ERS 09:16 → IMCU/EMU 13:10
PROVIDERS: ADMIT Internal Medicine; ATTEND Internal Medicine
PROC: 5A1D70Z Performance of Urinary Filtration, Intermittent, Less than 6 Hours Per Day (ICD-10-PCS; principal; 2018-11-30)
DX: A41.9 Sepsis, unspecified organism (principal); G93.41 Metabolic encephalopathy; N18.6 End stage renal disease; J96.01 Acute respiratory failure with hypoxia; I12.0 Hypertensive chronic kidney disease with stage 5 chronic kidney disease or end stage renal disease; I42.9 Cardiomyopathy, unspecified; I31.3 Pericardial effusion (noninflammatory); E11.22 Type 2 diabetes mellitus with diabetic chronic kidney disease; E03.9 Hypothyroidism, unspecified; E78.5 Hyperlipidemia, unspecified; E11.51 Type 2 diabetes mellitus with diabetic peripheral angiopathy without gangrene; D63.1 Anemia in chronic kidney disease; E87.5 Hyperkalemia; Z99.2 Dependence on renal dialysis; Z79.4 Long term (current) use of insulin; Z79.01 Long term (current) use of anticoagulants; Z88.5 Allergy status to narcotic agent; Z79.899 Other long term (current) drug therapy
CPT/HCPCS: 36415; 36416; 71045; 74176; 80048; 80053; 80202; 82140; 83605; 85025; 85610; 85730; 86706; 87040; 87086; 87324; 87340; 87449; 93005; 93010; 93306; A4353; J1644; J1825; J2543; J3370; J3490; J7050; P9047; S0028

== ENCOUNTER 2019-08-01 10:07 | Day surgery (SDC) | payer MEDICARE, BC ==
[2019-07-19 12:32] VITALS: BMI 30.7
[2019-08-01] MEDS ORDERED: PROPOFOL 200 MG/20 ML VIAL ONE (11:03)
[2019-08-01] MEDS ORDERED: Lidocaine 1% PF 5 ML VIAL ONE (11:03)
[2019-08-01] MEDS ORDERED: PHENYLEPHRINE-NS 100 MCG/ML 10 ML SYRINGE ONE (11:03)
[2019-08-01] MEDS ORDERED: Ondansetron PF 4 MG/2 ML Vial ONE (11:03)
[2019-08-01] MEDS ORDERED: Dexamethasone 20 MG/5 ML VIAL ONE (11:03)
[2019-08-01] MEDS ORDERED: Fentanyl 100 MCG/2 ML VIAL ONE (11:42)
[2019-08-01] MEDS ORDERED: Phenylephrine HCL 10 MG/ML VIAL ONE (11:42)
[2019-08-01] MEDS ORDERED: Propofol 1,000 MG/100 ML VIAL IV ONE (12:07)
[2019-08-01] MEDS ORDERED: Midazolam HCl 2 mg/2 ml Vial ONE (12:07)
[2019-08-01 12:29] LABS: Hemoglobin 11.5 g/dL (12.0-16.0); Mean Corpuscular HGB CONC 30.8 g/dL (32.0-36.0); Mean Corpuscular Hemoglobin 26.9 pg (27.0-31.0); Mean Corpuscular Volume 87.2 fL (78.0-98.0); Mean Platelet Volume 8.3 fL (7.4-10.4); Platelet Count 168 thou/uL (130-400); Red Blood Cell (RBC) Count 4.28 mill/uL (4.20-5.40); White Blood Cell (WBC) Count 4.4 thou/uL (4.8-10.8)
[2019-08-01 12:34] LABS: INR-International Normal Ratio 1.2; PTT 37.9 SEC (22.9-36.1); Prothrombin Time 15.5 SEC (12.0-14.7)
[2019-08-01 12:49] LABS: Eosinophils 5 % (0-10); Hypochromia SLIGHT = 6-15 cells (100X) (0-5/hpf); Lymphocytes 16 % (21-51); MDiff Complete? YES; Monocytes 8 % (0-10); Neutrophil 69 % (42-75); Platelet Morphology Comment Appears Adequate; Polychromasia SLIGHT = 2-3 cells (100X) (0-2/hpf); Target Cells MODERATE= 6-15 cells (100X) (0-1/hpf)
[2019-08-01 12:56] LABS: Anion Gap 13 mmol/L (10-20); BUN (Urea Nitrogen) 25 mg/dL (9.8-20.1); Calc. Creatinine Clearance 14 mL/min (70-130); Calcium 7.8 mg/dL (7.8-10.44); Carbon Dioxide 32 mmol/L (23-31); Chloride 98 mmol/L (98-107); Estimated GFR-MDRD 10; Glucose 96 mg/dL (80-115); Potassium 3.7 mmol/L (3.5-5.1); Sodium 139 mmol/L (136-145)
[2019-08-01] MEDS ORDERED: Protamine Sulfate 50 MG/5 ML VIAL ONE (13:01)
[2019-08-01] MEDS ORDERED: Heparin 5,000 UNITS/ML VIAL ONE (13:01)
[2019-08-01] MEDS ORDERED: Lidocaine 1% w/Epinephrine 1:100K 20 ML VIAL ONE (13:01)
[2019-08-01] MEDS ORDERED: Bupivacaine 0.25% HCL 30 ML VIAL ONE (13:01)
[2019-08-01] MEDS ORDERED: Heparin 10,000 UNITS/ 10 ML VIAL ONE (16:13)
--- NOTE | 2019-08-02 12:56 | HP ---
CHIEF COMPLAINT: Thrombosed AV fistula. HISTORY OF PRESENT ILLNESS: Ms. Caceres is a 69-year-old woman with a right upper arm graft, which has been thrombosed since March. She appeared to have potentially usable veins on ultrasound, so the recommendation was made to proceed with a right AV fistula due to the presence of with a left arm AV fistula or a possible HERO procedure if no suitable veins are found on intraoperative examination. She does have a history of central stenosis on the right according to some notes from her wedding consultant, but we were unable to get the notes from the interventional radiologist at [facility]. She did state that she had a [facility] and they reported a stenosis, which they were able to balloon back to normal in the subclavian. PAST MEDICAL HISTORY: 1. Diabetes. 2. Hypertension. 3. End-stage renal failure, on dialysis. PAST SURGICAL HISTORY: 1. Bilateral upper extremity grafts in [place]. 2. AICD. 3. Pacemaker. OUTPATIENT MEDICATIONS: Include; 1. Sevelamer. 2. Synthroid. 3. Coumadin. 4. . 5. Midodrine. 6. Sensipar. ALLERGIES: SHE REPORTS AN ALLERGY TO CODEINE. FAMILY HISTORY: Positive for diabetes and hypertension. SOCIAL HISTORY: She does not smoke, drink, or use illicit drugs. REVIEW OF SYSTEMS: Ten system review of systems is negative except per HPI. PHYSICAL EXAMINATION: GENERAL: Reveals frail, elderly woman, in no acute distress. HEENT: Unremarkable. HEART: Regular in its rate and rhythm without murmurs, rubs, or gallops. LUNGS: Clear to auscultation bilaterally. ABDOMEN: Soft, nontender, nondistended. EXTREMITIES: She has 2 thrombosed right upper arm AV grafts, which appeared to be brachioaxillary, but she does have palpable antecubital veins and forearm cephalic veins on the right and these appear to be of the caliber that is potentially usable for a fistula by vein mapping. ASSESSMENT: End-stage renal failure, currently dependent on a tunneled dialysis catheter in her groin. PLAN: Recommendation was made to proceed with exploration for AV fistula on the right arm with exploration for left AV fistula or possible HERO procedure if no appropriate veins can be identified. Inherent risks of surgery were discussed with the patient. These include, but are not limited to, bleeding, infection, risks of anesthesia, failure of the fistula to mature, and arterial steal. She understands and accepts these risks and wishes to proceed. Job ID: [id number]
--- NOTE | 2019-08-02 12:56 | OP ---
DATE OF PROCEDURE: 08/01/2019 PROCEDURE PERFORMED: Right upper arm exploration for dialysis access. PREOPERATIVE DIAGNOSIS: End-stage renal failure. POSTOPERATIVE DIAGNOSIS: End-stage renal failure. INDICATION FOR PROCEDURE: Ms. Caceres is a 69-year-old woman, who has a previous dialysis access with a right upper arm graft that has been clotted since March. She is undergoing dialysis using a tunneled catheter in her groin. She has a previous graft in her left arm, which lasted about a year and then clotted, and she has a pacemaker/AICD on the left side. Recommendation was made to explore her arm for a primary arteriovenous fistula on the right since she appeared to have potentially usable veins on that side by preoperative vein mapping, with a plan to proceed with exploration on the left if this is unsuccessful. She does have a pacemaker on the left, so a right-sided fistula was felt to be preferable. DESCRIPTION OF PROCEDURE: After informed consent was obtained and appropriate preoperative antibiotics were administered, the patient was taken to the operating room where she was placed in supine position and general anesthesia by laryngeal air mask was administered. She was prepped and draped in a standard sterile fashion and local anesthesia infused through the skin and subcutaneous tissues overlying the palpable forearm vein in the right wrist. Dissection was carried out to the forearm vein, which appeared to be of adequate size and quality for fistula creation. This was dissected free, marked for orientation, ligated and divided distally, spatulated with the [place] scissors and interrogated with cardiac dilators. Unfortunately, the patient had a stenosis at the level of the midforearm, which would not allow passage of the dilator beyond the distal third of the forearm, so this vein was ligated and attention was turned to the cephalic vein in the upper arm. The cephalic vein at the antecubital fossa was identified. Local anesthesia was infused and the vein appeared to be adequate for fistula formation. This was dissected free circumferentially, marked for orientation, ligated and divided distally, spatulated and interrogated with cardiac dilators, but had a dense stenosis in the mid upper arm making this not usable for dialysis either. The basilic vein was identified by ultrasound and dissected free. There was a sclerotic segment just above the antecubital fossa, so dissection was carried out further on the inner arm above this level of stenosis and the vein at this level appeared to be potentially usable. This was ligated and divided distally and spatulated and interrogated with cardiac dilators, but there was a stenosis of this vein in the mid upper arm as well, so this was also ligated. Since the patient already had a graft on this side to the axillary vein, the decision was made to abandon attempts at dialysis access placement at this site and to return at a later date for an attempt at dialysis access on the left or possibly a HERO procedure. Job ID: [id number] MTDD
--- NOTE | 2019-08-07 18:39 | EKG ---
Test Reason : PREOP Blood Pressure : / mmHG Vent. Rate : 060 BPM Atrial Rate : 060 BPM P-R Int : 000 ms QRS Dur : 082 ms QT Int : 512 ms P-R-T Axes : 000 075 121 degrees QTc Int : 512 ms Electronic atrial pacemaker Low voltage QRS Prolonged QT Abnormal ECG When compared with ECG of 30-NOV-2018 13:46, Electronic atrial pacemaker has replaced Sinus rhythm Confirmed by MAREK FRENCH, SChris ([id number]) on 08/07/2019 6:39:14 PM Referred By: TONJA Confirmed By:DR. Reba JARA MD
== END 2019-08-01 16:45 | disposition home or self-care (01) ==
LOC: SDC 10:07
PROVIDERS: ATTEND Surgery
PROC: 05JY3ZZ Inspection of Upper Vein, Percutaneous Approach (ICD-10-PCS; principal; 2019-08-01)
DX: I12.0 Hypertensive chronic kidney disease with stage 5 chronic kidney disease or end stage renal disease (principal); N18.6 End stage renal disease; E11.22 Type 2 diabetes mellitus with diabetic chronic kidney disease; T82.590A Other mechanical complication of surgically created arteriovenous fistula, initial encounter; Z79.899 Other long term (current) drug therapy; Z88.5 Allergy status to narcotic agent; Z95.810 Presence of automatic (implantable) cardiac defibrillator; Z99.2 Dependence on renal dialysis
CPT/HCPCS: 80048; 85025; 85610; 85730; 93005; 93010; J0690; J1100; J1644; J2001; J2250; J2370; J2405; J2704; J2720; J3010; S0020

== ENCOUNTER → 2019-08-31 | Day surgery (SDC) | payer MEDICARE, BC ==
[~2019-08-31] MED LIST: Heparin 1,000 UNITS/ML VIAL ONE; Iopamidol 300 61% 50 ML VIAL FS ONE
--- NOTE | 2019-08-31 15:05 | SPC ---
PROCEDURE: SPC INJECTION FOR VENORGRAPHY PROVIDED CLINICAL HISTORY: End-stage renal disease. Evaluate patency of internal jugular veins and evaluate site for possible pl acement of a HeRO graft. COMPARISON: None TECHNIQUE: After informed consent was obtained, the patient was placed on the angiography table in the supine po sition. Limited sonographic evaluation of the bilateral internal jugular veins was performed. There is echogenic material seen within the lower left internal jugular vein with incomplete lumen compress ibility suggesting thrombus. Linear echogenic focus is also seen in a portion of the more superior left internal jugular vein likely due to septation and possible from prior thrombus in this region. N ormal lumen compressibility is present involving the right internal jugular vein which is larger in size compared to the left. The right neck was meticulously prepped and draped in usual sterile fashion. Skin and subcutaneous ti ssues were infiltrated with buffered 1% lidocaine overlying the right internal jugular vein. The right internal jugular vein was accessed utilizing micropuncture technique and concurrent real time u ltrasound guidance. A 4 [place]raini introducer sheath was placed. Venography was performed. The introducer sheath was removed, and hemostasis was achieved with direct pressure. Dry sterile dressing was placed. The patient tolerated the procedure well and without immediate complication. Fluoroscopy: Dose-7444 mGy centimeter squared Time-0.3 minutes FINDINGS: Sonographic imaging of the right internal jugular vein demonstrates patency, but there is e vidence of nonocclusive thrombus in the left internal jugular vein. As result, the left internal jugular vein was not accessed for venography. The right internal jugular vein was accessed and venography was performed demonstrating occlusion of the left internal jugular vein at the level of the junction of the subclavian and innominate vein. Several vascular stents are seen overlying the right subclavian vein and extending into the proximal SVC. Collateral veins are seen about the right neck secondary to occlusion of the IVC. A dual-lead left subclavian AICD device is noted in place. There is a stent partially imaged overlying the medial right chest partially imaged on a prior CT scan of the abdomen possibly related to a stent and a right lower lobe pulmonary artery. IMPRESSION: 1. 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 2. Near occlusive to occlusive thrombus in the left internal jugular vein. 3. Above findings discussed with Dr. Weller at this time. Reported By: Donell Harrisally Signed: 08/31/2019 3:02 PM
== END ==
LOC: SPEC 09:42
PROVIDERS: ATTEND Surgery
PROC: B51 Imaging, Veins, Fluoroscopy (ICD-10-PCS; principal; 2019-08-31)
DX: I82.C13 Acute embolism and thrombosis of internal jugular vein, bilateral (principal); N18.6 End stage renal disease; Z88.5 Allergy status to narcotic agent; Z95.810 Presence of automatic (implantable) cardiac defibrillator
CPT/HCPCS: 36005; 75822; J1644; Q9967

== ENCOUNTER 2020-02-05 21:32 | Inpatient (IN) | payer MEDICARE, BC, OTHER ==
[2020-02-05] MEDS ORDERED: Acetaminophen 650 MG Suppository ONE (21:53)
[2020-02-05] MEDS ORDERED: Acetaminophen 120 MG Suppository ONE (21:53)
[2020-02-05] MEDS ORDERED: Cefepime 2 GM VIAL ONE (22:11)
--- NOTE | 2020-02-05 22:22 | RAD ---
Exam: Chest one view HISTORY:Fever. Comparison: 11/30/2018 FINDINGS: Cardiac silhouette:Cardiomegaly. Stable left-sided dual-lead defibrillator. Aorta: Unremarkable Pulmonary vessels: Normal Costophrenic angles: Small right-sided effusion LUNGS: Multifocal interstitial and alveolar opacities. There is more focal consolidation in the right lower lobe. Pneumothorax: None Osseous abnormalities: None Incidentals: Multiple vascular stents are redemonstrated. There appears to be a tubular structure pro jecting along the right paraspinal region in the abdomen. Correlate for possible vascular access. IMPRESSION: 1. Cardiomegaly 2. Multifocal interstitial and alveolar opacities. Correlate for multi lobar pneumonia.
[2020-02-05 22:23] LABS: Band 28 % (5-11); Hemoglobin 11.4 g/dL (12.0-16.0); Lymphocytes 4 % (21-51); MDiff Complete? YES; Mean Corpuscular HGB CONC 31.4 g/dL (32.0-36.0); Mean Corpuscular Hemoglobin 27.8 pg (27.0-31.0); Mean Corpuscular Volume 88.5 fL (78.0-98.0); Mean Platelet Volume 8.5 fL (7.4-10.4); Monocytes 1 % (0-10); Neutrophil 67 % (42-75); Platelet Count 185 thou/uL (130-400); Platelet Morphology Comment Appears Adequate; RBC Distribution Width 14.4 % (11.5-14.5)
[2020-02-05 22:33] LABS: ALT (SGPT) 12 U/L (8-55); AST (SGOT) 20 U/L (5-34); Albumin 3.2 g/dL (3.4-4.8); Alkaline Phosphatase 135 U/L (40-110); Anion Gap 16 mmol/L (10-20); BUN (Urea Nitrogen) 27 mg/dL (9.8-20.1); Bilirubin, Total 0.9 mg/dL (0.2-1.2); Calc. Creatinine Clearance 0 mL/min (70-130); Calcium 7.7 mg/dL (7.8-10.44); Carbon Dioxide 25 mmol/L (23-31); Chloride 99 mmol/L (98-107); Estimated GFR-MDRD 13; Globulin 4.4 g/dL (2.4-3.5); Glucose 244 mg/dL (80-115); Potassium 3.7 mmol/L (3.5-5.1); Protein, Total 7.6 g/dL (6.0-8.3); Sodium 136 mmol/L (136-145)
--- NOTE | 2020-02-05 22:45 | CT ---
Exam: Head CT without contrast HISTORY: Altered mental status. End-stage renal disease and cirrhosis. COMPARISON: 06/28/2018 FINDINGS: Hemorrhage: No intraparenchymal hemorrhage or extra-axial hematoma. Brain parenchyma: Cortical valdes-white matter differentiation is preserved. No mass effect or midline shift. Basilar cisterns are patent.Stable chronic small vessel ischemic changes of the white matter. Remote insult in the right cerebellar hemisphere with volume loss, unchanged. Ventricular system: Ventricles and sulci are patent and symmetric. Calvarium: Intact. Sinuses and mastoid air cells: Mucous retention cyst in the left maxillary sinus. Partial opacificati on of the inferior right mastoid air cells. IMPRESSION: No acute intracranial process.
[2020-02-05 23:24] LABS: Anion Gap 14 mmol/L (10-20); BUN (Urea Nitrogen) 27 mg/dL (9.8-20.1); Calc. Creatinine Clearance 0 mL/min (70-130); Calcium 7.8 mg/dL (7.8-10.44); Carbon Dioxide 25 mmol/L (23-31); Chloride 100 mmol/L (98-107); Estimated GFR-MDRD 13; Glucose 219 mg/dL (80-115); Potassium 3.2 mmol/L (3.5-5.1); Sodium 136 mmol/L (136-145)
[2020-02-06 00:06] LABS: CKMB 0.8 ng/mL (0-6.6)
[2020-02-06 01:11] LABS: SARS-CoV-2 NAA Rapid Test Not Detected (NotDetected)
[2020-02-06 03:21] LABS: Lactic Acid 2.9 mmol/L (0.5-2.2)
[2020-02-06] MEDS ORDERED: Acetaminophen 650 MG Suppository PR PRN (03:27)
[2020-02-06] MEDS ORDERED: Acetaminophen 325 MG TAB PO PRN (03:27)
[2020-02-06] MEDS ORDERED: Guaifenesin DM 100-10/5 ML UDCUP PO PRN (03:27)
[2020-02-06] MEDS ORDERED: Ondansetron ODT 4 MG TAB PO PRN (03:27)
[2020-02-06] MEDS ORDERED: Ondansetron PF 4 MG/2 ML Vial IVP PRN (03:27)
[2020-02-06] MEDS ORDERED: Calcium Carbonate 500 MG ChewTAB PO PRN (03:27)
[2020-02-06] MEDS ORDERED: HYDROcodone/Acetaminophen 5/325 mg Tablet PO PRN ×2 (03:27)
[2020-02-06] MEDS ORDERED: Sodium Chloride 0.9% 1,000 ML IV SCH (03:30)
--- NOTE | 2020-02-06 04:13 | PDOC.HHP ---
Hospitalist HPI - History of Present Illness History of Present Illness: Case of an 69y/o female with pmhx of esrd on h/d, cirrhosis, hld and htn who comes to hospital due to fever and altered mental status. apparently patient was on her usual state of health until today when family members noted that when she arrived from H/d she was confused and was running a fever of 104 for which she was brought for evaluation. at arrival she was noted to be on sepsis secondary to pneumonia for which hospitalist was consulted. they denied chills cough dysuria diarrhea nausea or vomiting Hospitalist ROS - Review of Systems All other systems reviewed; all pertinent +/- noted in HPI/Subj Hospitalist History - Past Medical History Source: family - Family History Family History: reports: no pertinent history - Social History Smoking Status: Never smoker Alcohol: reports: None Drugs: reports: none Living Situation: With Family - Exam General Appearance: NAD, awake alert Eye: PERRL, anicteric sclera ENT: normocephalic atraumatic, no oropharyngeal lesions Neck: supple, symmetric, no JVD, no thyromegaly Heart: RRR, no murmur, no gallops Respiratory: rales, rhonchi, tachypneic Gastrointestinal: soft, non-tender, non-distended Extremities: no cyanosis, no clubbing, no edema Skin: normal turgor, no lesions, no rashes Neurological: cranial nerve grossly intact, normal sensation to touch Musculoskeletal: normal tone, normal strength Psychiatric: normal affect, normal behavior, oriented to person, oriented to place Hospitalist Results - Labs Result Diagrams: 02/05/20 21:45 02/05/20 22:47 Lab results: WBC 17.0 thou/uL (4.8-10.8) H 02/05/20 21:45 Hgb 11.4 g/dL (12.0-16.0) L 02/05/20 21:45 Hct 36.2 % (36.0-47.0) 02/05/20 21:45 MCV 88.5 fL (78.0-98.0) 02/05/20 21:45 Plt Count 185 thou/uL (130-400) 02/05/20 21:45 Band Neuts % (Manual) 28 % (5-11) H 02/05/20 21:45 Sodium 136 mmol/L (136-145) 02/05/20 22:47 Potassium 3.2 mmol/L (3.5-5.1) L 02/05/20 22:47 Chloride 100 mmol/L (98-107) 02/05/20 22:47 Carbon Dioxide 25 mmol/L (23-31) 02/05/20 22:47 BUN 27 mg/dL (9.8-20.1) H 02/05/20 22:47 Creatinine 4.12 mg/dL (0.6-1.1) H 02/05/20 22:47 Glucose 219 mg/dL (80-115) H 02/05/20 22:47 Lactic Acid 2.9 mmol/L (0.5-2.2) H 02/06/20 00:51 Calcium 7.8 mg/dL (7.8-10.44) 02/05/20 22:47 Total Bilirubin 0.9 mg/dL (0.2-1.2) 02/05/20 21:45 AST 20 U/L (5-34) 02/05/20 21:45 ALT 12 U/L (8-55) 02/05/20 21:45 Alkaline Phosphatase 135 U/L (40-110) H 02/05/20 21:45 Ammonia 23 umol/L (18-72) 02/05/20 22:47 CK-MB (CK-2) 0.8 ng/mL (0-6.6) 02/05/20 22:47 Troponin I 0.078 ng/mL (< 0.028) H 02/05/20 22:47 Serum Total Protein 7.6 g/dL (6.0-8.3) 02/05/20 21:45 Albumin 3.2 g/dL (3.4-4.8) L 02/05/20 21:45 - Radiology Interpretation CT scan - head Additional Comment: no acute pathology Chest x-ray Additional Comment: multilobular pneumonia Hospitalist H&P A/P - Problem (1) Pneumonia Code(s): J18.9 - PNEUMONIA, UNSPECIFIED ORGANISM Status: Acute (2) Sepsis Code(s): A41.9 - SEPSIS, UNSPECIFIED ORGANISM Status: Acute Qualifiers: Sepsis type: sepsis due to unspecified organism Qualified Code(s): A41.9 - Sepsis, unspecified organism (3) DM type 2 (diabetes mellitus, type 2) Status: Chronic Qualifiers: Diabetes mellitus halfway insulin use: with halfway use Diabetes mellitus complication status: with kidney complications Diabetes mellitus complication detail: with chronic kidney disease Chronic kidney disease stage : on chronic dialysis Qualified Code(s): E11.22 - Type 2 diabetes mellitus with diabetic chronic kidney disease; N18.6 - End stage renal disease; Z79.4 - care home (current) use of insulin; Z99.2 - Dependence on renal dialysis (4) ESRD on dialysis Code(s): N18.6 - END STAGE RENAL DISEASE; Z99.2 - DEPENDENCE ON RENAL DIALYSIS Status: Chronic (5) HTN (hypertension) Code(s): I10 - ESSENTIAL (PRIMARY) HYPERTENSION Status: Chronic Qualifiers: Hypertension type: essential hypertension Qualified Code(s): I10 - Essential (primary) hypertension - Plan Plan: 69 y/o female arrives with sepsis parameters with a cxr with mutilobular pneumonia sepsis / pnuemonia - elevated wbc 17k with elevated LA with altered mental state, with a cxr consistent with pneumonia - esrd unable to give sepsis bundles ivfs - stared on levaquin - f/u cultures - f/u LA - 02 supplementation - duo nebs -covid test negative esrd - receive h/d today -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
[2020-02-06] MEDS ORDERED: Dextrose 5% in Water 1,000 ML IV PRN (04:21)
[2020-02-06] MEDS ORDERED: Dextrose 50% Abboject 50 ML SYRINGE SLOW IVP PRN (04:21)
[2020-02-06] MEDS ORDERED: HumaLOG 300 UNITS/3 ML VIAL SC PRN (04:21)
[2020-02-06 08:12] VITALS: BMI 23.6
[2020-02-06 08:37] LABS: Hemoglobin 11.4 g/dL (12.0-16.0); Mean Corpuscular HGB CONC 31.1 g/dL (32.0-36.0); Mean Corpuscular Hemoglobin 27.9 pg (27.0-31.0); Mean Corpuscular Volume 89.5 fL (78.0-98.0); Mean Platelet Volume 8.7 fL (7.4-10.4); Platelet Count 168 thou/uL (130-400); RBC Distribution Width 14.3 % (11.5-14.5); White Blood Cell (WBC) Count 19.4 thou/uL (4.8-10.8)
[2020-02-06 08:51] LABS: ALT (SGPT) 11 U/L (8-55); AST (SGOT) 17 U/L (5-34); Alkaline Phosphatase 120 U/L (40-110); Anion Gap 16 mmol/L (10-20); BUN (Urea Nitrogen) 32 mg/dL (9.8-20.1); Calc. Creatinine Clearance 12 mL/min (70-130); Calcium 7.8 mg/dL (7.8-10.44); Carbon Dioxide 24 mmol/L (23-31); Chloride 101 mmol/L (98-107); Estimated GFR-MDRD 11; Globulin 4.3 g/dL (2.4-3.5); Glucose 185 mg/dL (80-115); Potassium 3.8 mmol/L (3.5-5.1); Protein, Total 7.3 g/dL (6.0-8.3); Sodium 137 mmol/L (136-145)
[2020-02-06 08:55] LABS: Troponin I 0.136 ng/mL (< 0.028)
[2020-02-06 09:03] LABS: Band 9 % (5-11); Eosinophils 1 % (0-10); Lymphocytes 6 % (21-51); MDiff Complete? YES; Monocytes 5 % (0-10); Neutrophil 79 % (42-75); Platelet Morphology Comment Appears Adequate; Polychromasia SLIGHT = 2-3 cells (100X) (0-2/hpf)
[2020-02-06 12:22] LABS: Troponin I 0.102 ng/mL (< 0.028)
--- NOTE | 2020-02-06 18:31 | CON ---
DATE OF CONSULTATION: REASON FOR CONSULTATION: End-stage renal disease for maintenance hemodialysis. HISTORY OF PRESENT ILLNESS: A 69-year-old female, presented to the hospital with pneumonia like symptoms. The patient does dialysis Wednesday, Wednesday, and Wednesday, had dialysis yesterday. The patient denies any nausea, vomiting, or chest pain. PAST MEDICAL HISTORY: Significant for hypertension, anemia, end-stage renal disease, cirrhosis. The patient can give no further history. SOCIAL HISTORY: No alcohol or drug use. FAMILY HISTORY: Negative for ESRD. ALLERGIES: REVIEWED. MEDICATIONS: Home medications list, reviewed. Hospital medications list, reviewed. REVIEW OF SYSTEMS: 15-point review of system was unobtainable. PHYSICAL EXAMINATION: General: The patient is awake and alert. Vital Signs: Afebrile. Pulse , breathing 16, blood pressure 92/55. HEENT: Head normocephalic and atraumatic. Eyes intact, no ulcers. Nose intact, no ulcers. Ears intact, no ulcers. Neck: Supple. No JVD. Chest: Symmetrical and clear. Cardiovascular: Shows S1 and S2, no rub, no murmur. Gastrointestinal: Abdomen is soft, bowel sounds positive. Extremities: Show no edema or ulcers. Skin: Shows no rash or petechiae. Musculoskeletal: Shows no joint swelling or stiffness. Genitourinary: Shows no Ortiz or CVA tenderness. Neurologic: The patient is resting. LABORATORY DATA: Reviewed. ASSESSMENT AND PLAN: 1. chronic kidney disease. Plan dialysis Wednesday, Wednesday, Wednesday. 2. Hypertension, stable. 3. Anemia, stable. 4. Altered mental status, management per primary team. Job ID: [id number]
[2020-02-07 07:33] LABS: HBSAg Index 0.61 S/CO (0-0.99); Hep B Surf Ag Non-Reactive S/CO (NonReactive)
[2020-02-07] MEDS ORDERED: Fluticasone Propionate Nasal Spray 16 gm Bottle NASAL PRN ×2 (07:35→07:57)
[2020-02-07] MEDS ORDERED: Zolpidem Tartrate 5 MG TAB PO PRN (07:37)
[2020-02-07] MEDS ORDERED: Loratadine 10 MG TAB PO PRN (07:37)
[2020-02-07] MEDS ORDERED: Sodium Chloride 0.65% Nasal 44 ML BOT EA NARE PRN (07:37)
[2020-02-07] MEDS ORDERED: Cepastat Lozenges 1 LOZ PO PRN (07:37)
[2020-02-07] MEDS ORDERED: hydrALAZINE 20 MG/ML VIAL SLOW IVP PRN (07:37)
[2020-02-07] MEDS ORDERED: Bisacodyl 10 MG SUPP PR PRN (07:37)
[2020-02-07] MEDS ORDERED: Senokot S 8.6-50 MG TAB PO PRN (07:37)
[2020-02-07] MEDS ORDERED: Diabetic Tussin 200 MG/10 ML UDCUP PO PRN (07:37)
[2020-02-07] MEDS ORDERED: Loperamide HCl 2 MG CAP PO PRN (07:37)
[2020-02-07] MEDS ORDERED: Sevelamer Carbonate 800 MG TAB PO SCH (08:00)
[2020-02-07 08:03] LABS: ALT (SGPT) 12 U/L (8-55); AST (SGOT) 17 U/L (5-34); Albumin 3.1 g/dL (3.4-4.8); Alkaline Phosphatase 111 U/L (40-110); Anion Gap 18 mmol/L (10-20); BUN (Urea Nitrogen) 41 mg/dL (9.8-20.1); Bilirubin, Total 0.8 mg/dL (0.2-1.2); Calc. Creatinine Clearance 9 mL/min (70-130); Calcium 8.5 mg/dL (7.8-10.44); Carbon Dioxide 25 mmol/L (23-31); Chloride 96 mmol/L (98-107); Estimated GFR-MDRD 9; Globulin 4.6 g/dL (2.4-3.5); Glucose 132 mg/dL (80-115); Potassium 3.7 mmol/L (3.5-5.1); Protein, Total 7.7 g/dL (6.0-8.3); Sodium 135 mmol/L (136-145)
[2020-02-07 08:06] LABS: #Eosinphils 0.2 thou/uL (0.0-0.7); #Lymphocytes 1.3 thou/uL (1.20-3.40); #Monocytes 1.1 thou/uL (0.11-0.59); #Neutrophils 10.7 thou/uL (1.40-6.50); %Basophils 0.1 % (0.0-1.0); %Eosinophils 1.7 % (0.0-10.0); %Monocytes 8.3 % (0.0-10.0); Hemoglobin 10.6 g/dL (12.0-16.0); Mean Corpuscular HGB CONC 31.7 g/dL (32.0-36.0); Mean Corpuscular Hemoglobin 28.6 pg (27.0-31.0); Mean Corpuscular Volume 90.5 fL (78.0-98.0); Mean Platelet Volume 9.1 fL (7.4-10.4); Platelet Count 168 thou/uL (130-400); RBC Distribution Width 14.4 % (11.5-14.5); White Blood Cell (WBC) Count 13.4 thou/uL (4.8-10.8)
[2020-02-07] MEDS: Midodrine HCl 5 MG TAB PO SCH ×2 (08:18→16:37)
[2020-02-07 08:26] LABS: INR-International Normal Ratio 1.3; Prothrombin Time 16.4 sec (12.0-14.7)
[2020-02-07] MEDS ORDERED: Cinacalcet HCl 30 MG TAB PO SCH (09:00)
[2020-02-07] MEDS ORDERED: Saccharomyces boulardii 250 MG CAP PO SCH (09:00)
[2020-02-07] MEDS ORDERED: Levothyroxine Sodium 88 MCG TAB PO SCH (09:00)
[2020-02-07] MEDS ORDERED: Midodrine HCl 5 MG TAB PO SCH (09:00)
[2020-02-07] MEDS: Sevelamer Carbonate 800 MG TAB PO SCH ×3 (09:48→16:37)
[2020-02-07] MEDS ORDERED: Heparin 10,000 UNITS/ 10 ML VIAL ONE (10:21)
--- NOTE | 2020-02-07 10:59 | PDOC.HOSPP ---
- Subjective Encounter Date: 02/07/20 Encounter Time: 07:30 Subjective: Patient seen in dialysis room, patient is doing much better, she is on room air , she does not have any fever or shortness of breath. - Objective Vital Signs & Weight: Vital Signs (12 hours) Temp Pulse Resp BP Pulse Ox 02/07/20 07:07 97.8 F 86 16 114/73 94 L 02/07/20 04:35 97.9 F 100 14 102/62 97 02/07/20 00:31 82 16 94 L Weight Weight 146 lb Result Diagrams: 02/07/20 06:43 02/07/20 03:21 Additional Labs: Accuchecks 02/07/20 02/07/20 02/06/20 07:03 02:25 20:59 POC Glucose 123 H 139 H 166 H 02/06/20 02/06/20 16:54 11:08 POC Glucose 115 H 156 H Radiology Reviewed by me: Yes EKG Reviewed by me: Yes Hospitalist ROS - Review of Systems ENT: denies: ear pain, ear discharge, nose pain, nose discharge, nose congestion , mouth pain, mouth swelling, throat pain, throat swelling, other Respiratory: denies: cough, dry, shortness of breath, hemoptysis, SOB with excertion, pleuritic pain, sputum, wheezing, other Cardiovascular: denies: chest pain, palpitations, orthopnea, paroxysmal noc. dyspnea, edema, light headedness, other Gastrointestinal: denies: nausea, vomiting, abdominal pain, diarrhea, constipation, melena, hematochezia, other Genitourinary: denies: dysuria, frequency, incontinence, hematuria, retention, other Musculoskeletal: denies: neck pain, shoulder pain, arm pain, back pain, hand pain, leg pain, foot pain, other - Medication Medications: Active Medications Generic Name Dose Route Start Last Admin Trade Name Freq PRN Reason Stop Dose Admin Albuterol/Ipratropium 3 ml 02/06/20 07:00 02/07/20 08:26 Duoneb NEB Not Given [id number] BECKY Levofloxacin 250 mg/ Device 50 mls @ 100 mls/hr 02/06/20 04:00 02/07/20 04:33 IVPB 50 mls Q24HR BECKY Administration Midodrine 10 mg 02/07/20 09:00 02/07/20 08:18 Proamatine PO 10 mg TID BECKY Administration Sevelamer Carbonate 2,400 mg 02/07/20 08:00 02/07/20 09:48 Renvela PO Not Given TID-WM BECKY Sodium Chloride 10 ml 02/06/20 09:00 02/06/20 21:49 Flush - Normal Saline IVF 10 ml Q12HR BECKY Administration - Exam General Appearance: NAD, awake alert Eye: PERRL, anicteric sclera ENT: normocephalic atraumatic, no oropharyngeal lesions Neck: supple, symmetric, no JVD, no thyromegaly Heart: RRR, no murmur, no gallops, no rubs Respiratory: CTAB, no wheezes, no rales, no ronchi Gastrointestinal: soft, non-tender, non-distended, normal bowel sounds Extremities: no cyanosis, no clubbing Skin: normal turgor, no lesions Neurological: no focal deficits Musculoskeletal: normal tone, normal strength Psychiatric: normal affect, normal behavior Hosp A/P (1) Pneumonia Code(s): J18.9 - PNEUMONIA, UNSPECIFIED ORGANISM Status: Acute Qualifiers: Aspiration pneumonia type: unspecified Lung location: unspecified part of lung (2) Cardiomyopathy Code(s): I42.9 - CARDIOMYOPATHY, UNSPECIFIED Status: Chronic (3) Chronic anemia Code(s): D64.9 - ANEMIA, UNSPECIFIED Status: Chronic (4) DM type 2 (diabetes mellitus, type 2) Status: Chronic Qualifiers: Diabetes mellitus care home insulin use: with terminal computer operator use Diabetes mellitus complication status: with kidney complications Diabetes mellitus complication detail: with chronic kidney disease Chronic kidney disease stage : on chronic dialysis Qualified Code(s): E11.22 - Type 2 diabetes mellitus with diabetic chronic kidney disease; N18.6 - End stage renal disease; Z79.4 - termite inspector (current) use of insulin; Z99.2 - Dependence on renal dialysis (5) ESRD on dialysis Code(s): N18.6 - END STAGE RENAL DISEASE; Z99.2 - DEPENDENCE ON RENAL DIALYSIS Status: Chronic (6) HTN (hypertension) Code(s): I10 - ESSENTIAL (PRIMARY) HYPERTENSION Status: Chronic Qualifiers: Hypertension type: essential hypertension Qualified Code(s): I10 - Essential (primary) hypertension (7) Afib Code(s): I48.91 - UNSPECIFIED ATRIAL FIBRILLATION Status: Suspected Qualifiers: Atrial fibrillation type: chronic - Plan old records reviewed/req, continue antibiotics, respiratory therapy Patient has significant clinical improvement, her WBC count is also improving and she is on room air, she is getting dialysis today, her blood pressure is running lower side but patient is on midoidrin, I have reconciled her home medications. And I am expecting her discharge either today or tomorrow.
--- NOTE | 2020-02-07 11:24 | PRG ---
DATE OF SERVICE: 02/07/2020 SUBJECTIVE: A 69-year-old female being seen for end-stage renal disease. The patient denied nausea, vomiting, or chest pain. OBJECTIVE: GENERAL: The patient is awake and alert. VITAL SIGNS: Afebrile, pulse 83, breathing at 16, blood pressure 114/73. HEENT: Head normocephalic and atraumatic. Eyes intact, no ulcers. Nose intact, no ulcers. Ears intact, no ulcers. NECK: Supple. No JVD. CHEST: Symmetrical and clear. CARDIOVASCULAR: Shows S1 and S2, no rub, no murmur. GASTROINTESTINAL: Abdomen is soft, bowel sounds positive. EXTREMITIES: Show no edema or ulcers. SKIN: Shows no rash or petechiae. MUSCULOSKELETAL: Shows no joint swelling or stiffness. GENITOURINARY: Shows no Ortiz or CVA tenderness. NEUROLOGIC: Motor intact. Cranial nerves intact. LABORATORY DATA: Lab shows hemoglobin 10.6. ASSESSMENT AND PLAN: 1. Stage 2 chronic kidney disease. Currently on hemodialysis. 2. Hypertension, stable. 3. Anemia, stable. 4. Medication based on GFR, appropriate. Job ID: [id number]
--- NOTE | 2020-02-07 14:55 | PDOC.FMACP ---
Advance Care Planning - Problem (1) Palliative care encounter Status: Acute Code(s): Z51.5 - ENCOUNTER FOR PALLIATIVE CARE (2) Cardiomyopathy Status: Chronic Code(s): I42.9 - CARDIOMYOPATHY, UNSPECIFIED (3) Chronic anemia Status: Chronic Code(s): D64.9 - ANEMIA, UNSPECIFIED (4) DM type 2 (diabetes mellitus, type 2) Status: Chronic Qualifiers: Diabetes mellitus termite exterminator helper insulin use: with termite exterminator helper use Diabetes mellitus complication status: with kidney complications Diabetes mellitus complication detail: with chronic kidney disease Chronic kidney disease stage : on chronic dialysis Qualified Code(s): E11.22 - Type 2 diabetes mellitus with diabetic chronic kidney disease; N18.6 - End stage renal disease; Z79.4 - termite exterminator helper (current) use of insulin; Z99.2 - Dependence on renal dialysis (5) ESRD on dialysis Status: Chronic Code(s): N18.6 - END STAGE RENAL DISEASE; Z99.2 - DEPENDENCE ON RENAL DIALYSIS (6) HTN (hypertension) Status: Chronic Code(s): I10 - ESSENTIAL (PRIMARY) HYPERTENSION Qualifiers: Hypertension type: essential hypertension Qualified Code(s): I10 - Essential (primary) hypertension - Note Participants: patient, palliative care Summary: Palliative Care has addressed Advanced Care Planning, allowed opportunity to decline. The diagnosis, prognosis and goals of care were discussed. Appropriate forms and documentation to accomplish the goals of care were discussed. All questions were answered. Ms Higuera has elected to take the MPOA /Directive to physician home and discuss with her 4 children. She states she desires to discuss with them, explaining her decisions before she makes it "official". Electing to remain with full resuscitation measures at this time. The Palliative Care Team continue to assist with completion of documents when the patient is ready to do so. Please also refer to Palliative Care notes in note section. Palliative Care will sign off as Advanced directives and resuscitation measures have beed discussed. Please reconsult as needed. Time Spent (mins): 30
--- NOTE | 2020-02-07 15:51 | RAD ---
Chest 2 views HISTORY: Pneumonia. COMPARISON: 02/05/2020. FINDINGS: Cardiac silhouette is enlarged. Shallow inspiration accentuates pulmonary markings. Mediastinum is midline with aortic calcification and a dual lead left subclavian cardiac electronic d evice. Right hemidiaphragm remains elevated. Numerous vascular stent over the right side of the chest. Subtle patchy infiltrates at each lower lobe are less pronounced than prior exam. No evidence of pneumothorax. IMPRESSION : Interval improvement. Basilar infiltrates are less pronounced. Cardiomegaly and other findings are otherwise stable.
[2020-02-07 16:36] VITALS: BP 105/62; TEMP 98.1
[2020-02-07] MEDS ORDERED: Latanoprost 0.005% Ophth Soln 2.5 ml Bottle EA EYE SCH (21:00)
[2020-02-07] MEDS ORDERED: Non-Formulary Item 1 EACH (Travoprost [Travatan Z] 1 DROP) OP SCH (21:00)
--- NOTE | 2020-02-09 08:46 | DIS ---
DATE OF ADMISSION: 02/05/2020 DATE OF DISCHARGE: 02/07/2020 PRIMARY CARE PHYSICIAN: [facility] Call admission. DISCHARGE DISPOSITION: Home. PRIMARY DISCHARGE DIAGNOSES: 1. Atypical pneumonia. 2. Leukocytosis due to resolved. 3. Elevated troponin due to demand ischemia. SECONDARY DISCHARGE DIAGNOSES: 1. End-stage renal disease, on hemodialysis. 2. Hypotension. 3. Diabetes type 2. 4. Anemia secondary hyperparathyroidism of renal origin. PRIMARY PROCEDURE/OPERATION: Maintenance hemodialysis. RADIOLOGICAL INVESTIGATION: Chest x-ray on admission showed interstitial pneumonia. SIGNIFICANT LABORATORY DATA: COVID-19 negative. negative. WBC 13.4, hemoglobin 10.6, platelet 168. INR 1.3. Sodium 135, creatinine 5.86. Blood culture negative. DISCHARGE MEDICATIONS: 1. Levaquin 250 mg p.o. daily for 7 days. 2. Warfarin 5 mg p.o. daily. 3. Travatan Z one drop at bedtime. 4. . 5. Midodrine 5 mg two tablets t.i.d. 6. Levothyroxine 88 mcg daily. 7. Flonase nasal spray b.i.d. 8. 30 mg p.o. daily. CONTRAINDICATION: None. CODE STATUS: Full code. INPATIENT CAN RUNNER: Palliative Care and Nephrology. TEST RESULT PENDING ON DISCHARGE: None. ALLERGIES: CODEINE. DISCHARGE PLAN: Post hospital, the patient will follow up with primary care physician within a week. The patient will continue her regular hemodialysis. HOSPITAL COURSE: 69-year-old female who was admitted by Dr. Bonds. Please see his H and P for further details. The patient was having fever and altered mental status. The patient was having fever and that is why she was brought to the emergency room. The patient was diagnosed with pneumonia. Her COVID-19 was negative. She was on room air. The patient did not require any oxygen. The patient had maintenance hemodialysis while in the hospital. The patient's leukocytosis was also improving. On discharge, we changed to Levaquin p.o., which was given while in hospital. The patient is seen and examined at bedside today. Overall, the patient is doing much better, and she expressed her wish to go home. All new medication prescription sent to her pharmacy and she will continue previous medication. Job ID: [id number]
== END 2020-02-07 17:54 | disposition home or self-care (01) | DRG 871 ==
LOC: ERS 21:32 → OBSVTOIN 23:59 → ERHOLD 23:59 → 2NO 02-06 07:28
PROVIDERS: ADMIT Internal Medicine; ATTEND Internal Medicine
PROC: 5A1D70Z Performance of Urinary Filtration, Intermittent, Less than 6 Hours Per Day (ICD-10-PCS; principal; 2020-02-07)
DX: A41.9 Sepsis, unspecified organism (principal); N18.6 End stage renal disease; J18.9 Pneumonia, unspecified organism; I12.0 Hypertensive chronic kidney disease with stage 5 chronic kidney disease or end stage renal disease; I42.9 Cardiomyopathy, unspecified; Z20.828 Contact with and (suspected) exposure to other viral communicable diseases; E03.9 Hypothyroidism, unspecified; E78.5 Hyperlipidemia, unspecified; K74.60 Unspecified cirrhosis of liver; E11.22 Type 2 diabetes mellitus with diabetic chronic kidney disease; D63.1 Anemia in chronic kidney disease; Z95.810 Presence of automatic (implantable) cardiac defibrillator; Z99.2 Dependence on renal dialysis; Z88.5 Allergy status to narcotic agent; Z79.899 Other long term (current) drug therapy; Z79.01 Long term (current) use of anticoagulants; Z79.890 Hormone replacement therapy; Z79.84 Long term (current) use of oral hypoglycemic drugs
CPT/HCPCS: 36415; 36416; 70450; 71045; 71046; 80053; 82140; 82553; 83605; 84145; 84443; 84484; 85007; 85025; 85027; 85610; 87040; 87340; 93005; 94640; 96360; 96361; 96365; 96367; J0692; J1956; J3370; J7030; J7620; U0002